=== PATIENT | male | born 1950 | race African-American/Black ===

== ENCOUNTER 2017-12-11 10:14 | Day surgery (SDC) | payer OTHER ==
[2017-12-03 16:31] VITALS: BMI 24.1
[2017-12-11] MEDS ORDERED: MIDAZOLAM HCL 2 MG/2 ML SINGLE DOSE VIAL ONE (11:47)
[2017-12-11] MEDS ORDERED: GENTAMICIN SO4 80 MG/2 ML VIAL ONE (12:08)
[2017-12-11] MEDS ORDERED: ceFAZolin SODIUM 1 GM VIAL IVPB ONE (12:10)
[2017-12-11] MEDS ORDERED: GENTAMICIN SO4 80 MG/2 ML VIAL IVPB ONE (12:25)
[2017-12-11] MEDS ORDERED: oxyCODONE HCL 5 MG TABLET PO PRN (12:54)
--- NOTE | 2017-12-11 12:56 | OP ---
Operative Note - Note: Operative Date: 12/11/17 Pre-Operative Diagnosis: bladder tumor Operation: TURBT Post-Operative Diagnosis: Same as Pre-op Surgeon: Roger Albarran Anesthesia: General Specimens Removed: bladder tumor Drains & Tubes with Location: 20 [address] Operative Report Dictated: Yes
[2017-12-11] MEDS ORDERED: ELECTROLYTE-148 SOLN 1,000 ML IV SCH (13:00)
[2017-12-11] MEDS ORDERED: ONDANSETRON 4 MG/2 ML VIAL IVPUSH PRN (13:19)
[2017-12-11] MEDS ORDERED: ACETAMINOPHEN 500 MG TABLET (FP) PO PRN (13:19)
[2017-12-11] MEDS ORDERED: LACTATED RINGERS SOLUTION 1,000 ML IV SCH (13:30)
--- NOTE | 2017-12-11 14:16 | OP ---
DATE OF OPERATION: 12/11/2017 PREOPERATIVE DIAGNOSIS: Large bladder tumor on left-sided trigone. POSTOPERATIVE DIAGNOSIS: Large bladder tumor on left-sided trigone. PROCEDURE: Transurethral resection of bladder tumor. SURGEON: Eddie Byers MD INDICATIONS: Patient is a 67-year-old male with a large bladder tumor confirmed by cystoscopy. She was taken to the OR for resection. Risks, benefits, and alternatives were discussed. DESCRIPTION OF PROCEDURE: After informed consent was obtained, patient was taken to the OR and placed supine on the operating table. After cardiac monitoring was established and general anesthesia was administered, he was prepped and draped in the dorsal lithotomy position. He was given a gram of Ancef and 80 mg of gentamicin. The resectoscope with the visual obturator was inserted into the urethra without difficulty. Anterior urethra was normal. Prostatic urethra was 3 cm and visually occlusive. The bladder was visualized. There was a large papillary appearing tumor on the left side of the bladder encompassing a good portion of the left trigone of the bladder stopping just short of the ureteral orifice and extending to the bladder neck. This was resected in its entirety, sent to Pathology for analysis, and a separate specimen was resected out of the tumor base. All bleeding sites were fulgurated, no other tumors were noted, and the ureteral orifice was seen with efflux on that side and it was also a normal right ureteral orifice. All the tumor chips were removed. Roche catheter was then placed to straight drainage. Svensen-tinged urine was then retrieved. Patient was then awoken from anesthesia and transferred to recovery room in stable condition. There were no complications. Estimated blood loss was minimal. EDDIE BYERS M.D. [id number]
[2017-12-11 15:36] VITALS: BP 146/83; PULSE 70; TEMP 97.4
--- NOTE | 2017-12-15 12:40 | PATH ---
Surgical Pathology Report Patient Name: LARRY HORVATH Med. Rec. #: [id number] /Age/Gender: 1950 (Age: 67) / M Account: [id number] Location: [facility] Taken: 12/11/2017 Received: 12/12/2017 Reported: 12/15/2017 Physicians: Roger Albarran M.D. Specimen(s) Received A: BLADDER TUMOR B: BX OF BLADDER TUMOR BASE Clinical History Bladder CA Final Diagnosis A. 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 NO MUSCULARIS PROPRIA IDENTIFIED. NO FLAT CARCINOMA IN SITU (CIS) IDENTIFIED. B. TUMOR BASE, BIOPSY LAMINA PROPRIA AND RARE MUSCULARIS MUCOSA WITH FOCAL MILD CHRONIC INFLAMMATION. NO EPITHELIUM, MUSCULARIS PROPRIA, OR CARCINOMA IDENTIFIED. Comment: Case seen interdepartmentally. Findings discussed with Dr. Smith. Electronically Signed Anika Cherry M.D. Gross Description A. Received in formalin, labeled "bladder tumor" are multiple rodriguez, necrotic, irregular portions of soft tissue measuring 3 x 3 x 1 cm. in aggregate. The specimens are submitted in 2 cassettes. B. Received in formalin, labeled "biopsy of tumor base" is a bettencourt, irregular portion of soft tissue measuring 0.4 cm. in greatest dimension. The specimens are submitted in toto in one cassette. MICA/12/12/2017 davina/12/12/2017
== END 2017-12-11 15:40 | disposition home or self-care (01) ==
LOC: JASU-SURG 10:14
PROVIDERS: ATTEND Urology
PROC: 0T5B8ZZ Destruction of Bladder, Via Natural or Artificial Opening Endoscopic (ICD-10-PCS; principal; 2017-12-11 11:30)
DX: C67.9 Malignant neoplasm of bladder, unspecified (principal)
CPT/HCPCS: 88305-TC; 94760

== ENCOUNTER → 2021-05-17 | Day surgery (SDC) | payer OTHER | END | disposition home or self-care (01) | LOC: JRADIR 09:57 | PROVIDERS: ATTEND Internal Medicine Endocrinology, Diabetes & Metabolism | PROC: 0G9K3ZX Drainage of Thyroid Gland, Percutaneous Approach, Diagnostic (ICD-10-PCS; principal; 2021-05-17) | DX: E04.1 Nontoxic single thyroid nodule (principal) | CPT/HCPCS: 10005; 76942; 88173; 88305-TC ==

== ENCOUNTER 2021-10-23 14:23 | Inpatient (IN) | payer OTHER ==
[2021-10-23 18:04] LABS: INR 1.37 (0.83-1.09); PROTHROMBIN TIME (PATIENT) 15.8 SEC (9.7-13.0)
[2021-10-23 18:07] LABS: ACTIVATED PTT 32.4 SECONDS (25.2-36.5)
[2021-10-23 18:15] LABS: CALCIUM 10.1 mg/dL (8.5-10.1)
[2021-10-23 18:16] LABS: ALBUMIN 2.8 g/dl (3.4-5.0); BLOOD UREA NITROGEN 22.3 mg/dL (7-18)
[2021-10-23 18:19] LABS: CREATININE 0.7 mg/dL (0.55-1.3); TOT PROT 7.9 g/dl (6.4-8.2)
[2021-10-23 18:21] LABS: BILIRUBIN,TOTAL 0.9 mg/dL (0.2-1)
[2021-10-23 18:57] LABS: EOS % 2.7 % (0-4.5); HEMATOCRIT 28.4 % (35.4-49); HEMOGLOBIN 9.3 GM/dL (11.7-16.9); LYMPH % 15.3 % (8-40); MCH 30.6 pg (25.7-33.7); MCHC 32.6 g/dl (32.0-35.9); MEAN CELL VOLUME 93.7 fl (80-96); MEAN PLT VOLUME 8.5 fl (7.5-11.1); MONO % 10.8 % (3.8-10.2); PLATELET COUNT 274 10^3/uL (134-434); RBC 3.03 M/mm3 (4.00-5.60); RDW 19.5 % (11.9-15.9); WHITE BLOOD COUNT 13.1 K/mm3 (4.0-10.0)
[2021-10-23] MEDS ORDERED: morphine CARPU-JECT 4 MG/1 ML DISP.SYRIN IVPUSH ONE (19:08)
[2021-10-23] MEDS ORDERED: ONDANSETRON 4 MG/2 ML VIAL IVPUSH ONE (19:08)
[2021-10-23] MEDS ORDERED: morphine SULFATE 4 MG/ML VIAL ONE (19:37)
[2021-10-23] MEDS ORDERED: ONDANSETRON 4 MG/2 ML VIAL ONE (19:37)
[2021-10-23 19:58] LABS: ANISOCYTOSIS 1+; MACROCYTOSIS 1+; PLATELET ESTIMATE NORMAL
[2021-10-23] MEDS ORDERED: DOCUSATE SODIUM 100 MG CAPSULE (FP) PO PRN (21:12)
[2021-10-23] MEDS: DEXTROSE 5%-0.45% SALINE 1,000 ML IV SCH (22:50)
[2021-10-23] MEDS: oxyCODONE HCL 5 MG TABLET PO PRN (23:58)
[2021-10-24] MEDS: oxyCODONE HCL 5 MG TABLET PO PRN ×2 (05:35→10:47)
[2021-10-24 08:03] LABS: ALBUMIN 2.7 g/dl (3.4-5.0); BLOOD UREA NITROGEN 20.4 mg/dL (7-18); CALCIUM 9.7 mg/dL (8.5-10.1)
[2021-10-24 08:06] LABS: CREATININE 0.8 mg/dL (0.55-1.3)
[2021-10-24 08:08] LABS: BILIRUBIN,TOTAL 0.8 mg/dL (0.2-1); TOT PROT 7.4 g/dl (6.4-8.2)
[2021-10-24 08:51] LABS: BASO % 0.6 % (0-2.0); EOS % 3.3 % (0-4.5); HEMATOCRIT 25.2 % (35.4-49); HEMOGLOBIN 8.3 GM/dL (11.7-16.9); MCH 30.4 pg (25.7-33.7); MEAN PLT VOLUME 8.6 fl (7.5-11.1); MONO % 11.7 % (3.8-10.2); NEUT % 70.4 % (42.8-82.8); PLATELET COUNT 301 10^3/uL (134-434); RBC 2.74 M/mm3 (4.00-5.60); RDW 19.8 % (11.9-15.9); WHITE BLOOD COUNT 11.8 K/mm3 (4.0-10.0)
[2021-10-24] MEDS: ENOXAPARIN NA (PORCINE) 40 MG/0.4 ML DISP.SYRIN SQ SCH ×2 (10:48→10:50)
[2021-10-24 14:16] LABS: URIC ACID 4.3 mg/dL (2.6-7.2)
[2021-10-24] MEDS: HYDROmorphone HCl 2 MG/ML VIAL IM PRN (16:11)
[2021-10-25] MEDS: HYDROmorphone HCl 2 MG/ML VIAL IM PRN ×4 (00:04→19:45)
[2021-10-25] MEDS: DEXTROSE 5%-0.45% SALINE 1,000 ML IV SCH ×3 (01:47→17:46)
[2021-10-25 11:03] VITALS: BMI 19.0
[2021-10-26] MEDS: oxyCODONE HCL 5 MG TABLET PO PRN ×2 (02:17→17:53)
[2021-10-26] MEDS: HYDROmorphone HCl 2 MG/ML VIAL IM PRN ×3 (03:42→21:55)
[2021-10-26] MEDS: DEXTROSE 5%-0.45% SALINE 1,000 ML IV SCH (21:15)
[2021-10-27] MEDS: DEXTROSE 5%-0.45% SALINE 1,000 ML IV SCH (00:45)
[2021-10-27] MEDS: HYDROmorphone HCl 2 MG/ML VIAL IM PRN ×4 (03:38→16:46)
[2021-10-27] MEDS: ENOXAPARIN NA (PORCINE) 40 MG/0.4 ML DISP.SYRIN SQ SCH (11:18)
[2021-10-27 13:35] LABS: ALBUMIN 2.6 g/dl (3.4-5.0); BLOOD UREA NITROGEN 11.8 mg/dL (7-18); CALCIUM 9.6 mg/dL (8.5-10.1)
[2021-10-27 13:38] LABS: CREATININE 0.7 mg/dL (0.55-1.3)
[2021-10-27 13:40] LABS: BILIRUBIN,TOTAL 0.8 mg/dL (0.2-1); TOT PROT 7.2 g/dl (6.4-8.2)
[2021-10-27 14:25] LABS: BASO % 0.5 % (0-2.0); EOS % 3.3 % (0-4.5); LYMPH % 14.5 % (8-40); MCHC 42.7 g/dl (32.0-35.9); MEAN CELL VOLUME 105.2 fl (80-96); MEAN PLT VOLUME 7.4 fl (7.5-11.1); MONO % 15.1 % (3.8-10.2); NEUT % 66.6 % (42.8-82.8); PLATELET COUNT 252 10^3/uL (134-434); RBC 1.99 M/mm3 (4.00-5.60); RDW 20.3 % (11.9-15.9); WHITE BLOOD COUNT 9.1 K/mm3 (4.0-10.0)
[2021-10-27 14:28] LABS: MCH 44.9 pg (25.7-33.7)
[2021-10-27] MEDS ORDERED: POLYETHYLENE GLYCOL (HEALTHYLAX) 3350 17 GM PACKET PO ONE (18:34)
[2021-10-27] MEDS ORDERED: oxyCODONE HCL 5 MG TABLET PO PRN (20:44)
[2021-10-27] MEDS: HYDROmorphone HCl 2 MG/ML VIAL IVPB PRN (20:48)
[2021-10-27] MEDS: DOCUSATE SODIUM 100 MG CAPSULE (FP) PO SCH (21:03)
[2021-10-28] MEDS: HYDROmorphone HCl 2 MG/ML VIAL IVPB PRN ×5 (00:48→19:06)
[2021-10-28] MEDS: DOCUSATE SODIUM 100 MG CAPSULE (FP) PO SCH ×3 (05:19→21:17)
[2021-10-28] MEDS: ENOXAPARIN NA (PORCINE) 40 MG/0.4 ML DISP.SYRIN SQ SCH (09:50)
[2021-10-28 14:52] LABS: BASO % 5.1 % (0-2.0); EOS % 3.5 % (0-4.5); HEMATOCRIT 25.6 % (35.4-49); HEMOGLOBIN 8.4 GM/dL (11.7-16.9); LYMPH % 12.2 % (8-40); MCH 27.8 pg (25.7-33.7); MCHC 32.9 g/dl (32.0-35.9); MEAN CELL VOLUME 84.6 fl (80-96); MEAN PLT VOLUME 7.5 fl (7.5-11.1); MONO % 14.6 % (3.8-10.2); NEUT % 64.6 % (42.8-82.8); PLATELET COUNT 253 10^3/uL (134-434); RBC 3.03 M/mm3 (4.00-5.60); RDW 19.6 % (11.9-15.9); WHITE BLOOD COUNT 12.1 K/mm3 (4.0-10.0)
[2021-10-28 16:05] LABS: ANISOCYTOSIS 1+; MACROCYTOSIS 0
[2021-10-29] MEDS: HYDROmorphone HCl 2 MG/ML VIAL IVPB PRN ×2 (01:49→07:10)
[2021-10-29] MEDS: DOCUSATE SODIUM 100 MG CAPSULE (FP) PO SCH ×4 (05:10→22:09)
[2021-10-29] MEDS: ENOXAPARIN NA (PORCINE) 40 MG/0.4 ML DISP.SYRIN SQ SCH (09:11)
[2021-10-29] MEDS: oxyCODONE HCL 5 MG TABLET PO PRN ×2 (15:28→21:33)
[2021-10-29] MEDS ORDERED: IRON SUCROSE INJECTION 200 MG in SODIUM CHLORIDE 90 ML IVPB ONE (16:30)
[2021-10-29] MEDS ORDERED: PRAMIPEXOLE DIHYDROCHLORIDE 0.125 MG TABLET PO SCH (20:00)
[2021-10-29] MEDS ORDERED: FENTANYL PATCH WASTE MC PRN ×2 (20:07→23:41)
[2021-10-29] MEDS: fentaNYL 25mcg/hr PATCH.TD72 TD SCH ×2 (21:24→22:09)
[2021-10-29] MEDS ORDERED: fentaNYL 25mcg/hr PATCH.TD72 TD SCH (23:45)
[2021-10-30] MEDS: oxyCODONE HCL 5 MG TABLET PO PRN (03:34)
[2021-10-30 06:09] VITALS: BP 127/72; PULSE 109; TEMP 98
[2021-10-30] MEDS: DOCUSATE SODIUM 100 MG CAPSULE (FP) PO SCH ×2 (06:10→06:12)
[2021-10-30] MEDS ORDERED: PANTOPRAZOLE 40 MG TABLET PO SCH (10:00)
[2021-10-30] MEDS ORDERED: MULTIVITAMINS (DAILY MVI) TABLET (FP) PO SCH (10:00)
== END 2021-10-30 08:00 | disposition left against medical advice (07) | DRG 166 ==
LOC: JER 14:23 → JERBED 20:39 → J7W 22:14
PROVIDERS: ADMIT Hospitalist; ATTEND Family Medicine
PROC: 0WBC3ZX Excision of Mediastinum, Percutaneous Approach, Diagnostic (ICD-10-PCS; principal; 2021-10-25)
DX: C38.3 Malignant neoplasm of mediastinum, part unspecified (principal); E43 Unspecified severe protein-calorie malnutrition; C34.90 Malignant neoplasm of unspecified part of unspecified bronchus or lung; I31.3 Pericardial effusion (noninflammatory); Z68.1 Body mass index [BMI] 19.9 or less, adult; M25.511 Pain in right shoulder; E78.5 Hyperlipidemia, unspecified; D72.829 Elevated white blood cell count, unspecified; C67.9 Malignant neoplasm of bladder, unspecified; F17.210 Nicotine dependence, cigarettes, uncomplicated
CPT/HCPCS: 32408; 36415; 70450-TC; 71045-TC-FY; 71250-TC; 71260-TC; 74177-TC; 77012-TC; 80053; 82105; 82728; 83540; 83615; 84439; 84443; 84550; 84702; 85025; 85610; 85730; 86850; 86900; 86901; 87040; 88305-TC; 88341-TC; 93005; 93010; 93306-TC; 93971; 99285-25; C9803-CS; J1756; U0003; U0005

== ENCOUNTER 2021-11-01 16:14 | Inpatient (IN) | payer OTHER ==
[2021-11-01] MEDS ORDERED: ACETAMINOPHEN INJECTION 100 ML IVPB ONE (17:53)
[2021-11-01] MEDS ORDERED: ALBUTEROL SO4 2.5/IPRATROPIUM 0.5 INH SOL 3 ML VIAL.NEB. NEB ONE ×2 (17:53→17:56)
[2021-11-01] MEDS ORDERED: ACETAMINOPHEN 1000 MG/100 ML BAG IVPB ONE (17:56)
[2021-11-01 18:22] LABS: VENOUS BASE EXCESS -1.2 mmol/L (-2-2); VENOUS O2 SATURATION 88.1 % (70-80); VENOUS PH 7.382 (7.310-7.410)
[2021-11-01] MEDS ORDERED: HYDROmorphone HCL CARPU-JECT 2 MG/1 ML DISP.SYRIN IVPB PRN (18:34)
[2021-11-01 18:40] LABS: BASO % 0.7 % (0-2.0); EOS % 1.2 % (0-4.5); HEMATOCRIT 26.2 % (35.4-49); HEMOGLOBIN 8.7 GM/dL (11.7-16.9); LYMPH % 10.1 % (8-40); MCH 28.7 pg (25.7-33.7); MCHC 33.3 g/dl (32.0-35.9); MEAN CELL VOLUME 86.2 fl (80-96); MEAN PLT VOLUME 7.5 fl (7.5-11.1); MONO % 14.3 % (3.8-10.2); NEUT % 73.7 % (42.8-82.8); PLATELET COUNT 400 10^3/uL (134-434); RBC 3.04 M/mm3 (4.00-5.60); RDW 20.5 % (11.9-15.9)
[2021-11-01 19:10] LABS: ANISOCYTOSIS 2+; MACROCYTOSIS 1+; PLATELET ESTIMATE NORMAL
[2021-11-01 19:43] LABS: ACTIVATED PTT 28.8 SECONDS (25.2-36.5); INR 1.3 (0.83-1.09)
[2021-11-01 20:39] LABS: ALBUMIN 2.6 g/dl (3.4-5.0); CALCIUM 9.9 mg/dL (8.5-10.1)
[2021-11-01 20:44] LABS: TOT PROT 7.1 g/dl (6.4-8.2)
[2021-11-01 20:47] LABS: N-TERMINAL BNP 98.2 pg/ml (5-125)
[2021-11-01] MEDS ORDERED: HYDROmorphone HCl 2 MG/ML VIAL ONE (22:06)
[2021-11-01] MEDS ORDERED: POLYETHYLENE GLYCOL (HEALTHYLAX) 3350 17 GM PACKET PO PRN (23:28)
[2021-11-02 03:38] VITALS: BMI 19.8
[2021-11-02] MEDS: HYDROmorphone HCl 2 MG/ML VIAL IVPB PRN ×2 (06:37→19:00)
[2021-11-02 07:52] LABS: BASO % 0.7 % (0-2.0); EOS % 2.5 % (0-4.5); HEMATOCRIT 23.3 % (35.4-49); HEMOGLOBIN 7.6 GM/dL (11.7-16.9); LYMPH % 11.1 % (8-40); MCH 27.6 pg (25.7-33.7); MCHC 32.6 g/dl (32.0-35.9); MEAN CELL VOLUME 84.9 fl (80-96); MEAN PLT VOLUME 7.5 fl (7.5-11.1); NEUT % 70.7 % (42.8-82.8); PLATELET COUNT 373 10^3/uL (134-434); RBC 2.75 M/mm3 (4.00-5.60); RDW 20.2 % (11.9-15.9); WHITE BLOOD COUNT 13.7 K/mm3 (4.0-10.0)
[2021-11-02 07:59] LABS: CALCIUM 9.9 mg/dL (8.5-10.1)
[2021-11-02 08:00] LABS: BLOOD UREA NITROGEN 42.7 mg/dL (7-18)
[2021-11-02 08:02] LABS: MAGNESIUM 2.9 mg/dL (1.8-2.4)
[2021-11-02] MEDS: DEXAMETHASONE SOD PHOSPHATE 4 MG/1 ML VIAL IVPB SCH ×2 (10:09→21:45)
[2021-11-02 13:58] LABS: ALBUMIN 2.4 g/dl (3.4-5.0); BLOOD UREA NITROGEN 45.8 mg/dL (7-18); CALCIUM 9.8 mg/dL (8.5-10.1)
[2021-11-02 14:01] LABS: CREATININE 1.1 mg/dL (0.55-1.3)
[2021-11-02 14:03] LABS: BILIRUBIN,TOTAL 2.1 mg/dL (0.2-1); TOT PROT 6.5 g/dl (6.4-8.2)
[2021-11-02 14:59] LABS: BASO % 0.7 % (0-2.0); EOS % 2.8 % (0-4.5); HEMATOCRIT 21.6 % (35.4-49); LYMPH % 12.8 % (8-40); MCH 28.4 pg (25.7-33.7); MCHC 32.6 g/dl (32.0-35.9); MEAN CELL VOLUME 87.3 fl (80-96); NEUT % 68.7 % (42.8-82.8); PLATELET COUNT 349 10^3/uL (134-434); RBC 2.47 M/mm3 (4.00-5.60); RDW 20.7 % (11.9-15.9); WHITE BLOOD COUNT 12.2 K/mm3 (4.0-10.0)
[2021-11-03] MEDS: HYDROmorphone HCl 2 MG/ML VIAL IVPB PRN ×3 (05:58→21:19)
[2021-11-03] MEDS: DEXAMETHASONE SOD PHOSPHATE 4 MG/1 ML VIAL IVPB SCH ×2 (09:44→21:20)
[2021-11-04] MEDS: HYDROmorphone HCl 2 MG/ML VIAL IVPB PRN ×4 (02:58→22:20)
[2021-11-04 07:19] LABS: BASO % 0.8 % (0-2.0); CALCIUM 9.4 mg/dL (8.5-10.1); EOS % 0.1 % (0-4.5); HEMATOCRIT 22.6 % (35.4-49); HEMOGLOBIN 7.6 GM/dL (11.7-16.9); LYMPH % 7.8 % (8-40); MCH 31.2 pg (25.7-33.7); MCHC 33.7 g/dl (32.0-35.9); MEAN CELL VOLUME 92.7 fl (80-96); MEAN PLT VOLUME 7.5 fl (7.5-11.1); MONO % 9.9 % (3.8-10.2); NEUT % 81.4 % (42.8-82.8); PLATELET COUNT 367 10^3/uL (134-434); RBC 2.44 M/mm3 (4.00-5.60); RDW 19.6 % (11.9-15.9); WHITE BLOOD COUNT 18.6 K/mm3 (4.0-10.0)
[2021-11-04 07:20] LABS: ALBUMIN 2.4 g/dl (3.4-5.0); BLOOD UREA NITROGEN 52.5 mg/dL (7-18)
[2021-11-04 07:23] LABS: BILIRUBIN,TOTAL 0.5 mg/dL (0.2-1); TOT PROT 6.6 g/dl (6.4-8.2)
[2021-11-04] MEDS: DEXAMETHASONE SOD PHOSPHATE 4 MG/1 ML VIAL IVPB SCH ×2 (09:59→22:21)
[2021-11-05] MEDS: HYDROmorphone HCl 2 MG/ML VIAL IVPB PRN ×3 (06:12→23:06)
[2021-11-05 07:46] LABS: CALCIUM 9.6 mg/dL (8.5-10.1)
[2021-11-05 07:47] LABS: ALBUMIN 2.6 g/dl (3.4-5.0)
[2021-11-05 07:48] LABS: CREATININE 0.9 mg/dL (0.55-1.3)
[2021-11-05 07:49] LABS: BILIRUBIN,TOTAL 0.7 mg/dL (0.2-1)
[2021-11-05 07:50] LABS: TOT PROT 7.1 g/dl (6.4-8.2)
[2021-11-05 08:04] LABS: BASO % 0.2 % (0-2.0); HEMATOCRIT 24.8 % (35.4-49); HEMOGLOBIN 8.3 GM/dL (11.7-16.9); LYMPH % 7.2 % (8-40); MCH 32.5 pg (25.7-33.7); MCHC 33.6 g/dl (32.0-35.9); MEAN CELL VOLUME 96.6 fl (80-96); MEAN PLT VOLUME 7.9 fl (7.5-11.1); MONO % 5.4 % (3.8-10.2); NEUT % 87.2 % (42.8-82.8); PLATELET COUNT 359 10^3/uL (134-434); RBC 2.57 M/mm3 (4.00-5.60); WHITE BLOOD COUNT 15.7 K/mm3 (4.0-10.0)
[2021-11-05] MEDS ORDERED: FENTANYL PATCH WASTE MC PRN (08:09)
[2021-11-05] MEDS ORDERED: fentaNYL 25mcg/hr PATCH.TD72 TD SCH (08:15)
[2021-11-05] MEDS: DEXAMETHASONE SOD PHOSPHATE 4 MG/1 ML VIAL IVPB SCH ×2 (09:22→20:21)
[2021-11-05] MEDS: TAMSULOSIN HCL 0.4 MG CAP PO SCH (09:23)
[2021-11-05 09:59] LABS: PLATELET ESTIMATE ADEQUATE
[2021-11-05] MEDS ORDERED: ENOXAPARIN NA (PORCINE) 40 MG/0.4 ML DISP.SYRIN SQ SCH (10:00)
[2021-11-05 11:36] LABS: INR 1.28 (0.83-1.09); PROTHROMBIN TIME (PATIENT) 14.8 SEC (9.7-13.0)
[2021-11-05 11:38] LABS: ACTIVATED PTT 29.5 SECONDS (25.2-36.5)
[2021-11-05] MEDS ORDERED: ENOXAPARIN NA (PORCINE) 40 MG/0.4 ML DISP.SYRIN SQ ONE ×2 (17:34→22:00)
[2021-11-05] MEDS: ASPIRIN COATED 81 MG TABLET.EC PO SCH (20:21)
[2021-11-06] MEDS: HYDROmorphone HCl 2 MG/ML VIAL IVPB PRN (03:26)
[2021-11-06] MEDS: ACETAMINOPHEN 325 MG TABLET (FP) PO PRN ×2 (09:20→16:44)
[2021-11-06] MEDS: ASPIRIN COATED 81 MG TABLET.EC PO SCH (09:21)
[2021-11-06] MEDS: POLYETHYLENE GLYCOL (HEALTHYLAX) 3350 17 GM PACKET PO SCH (09:21)
[2021-11-06] MEDS: DEXAMETHASONE SOD PHOSPHATE 4 MG/1 ML VIAL IVPB SCH ×2 (09:21→21:09)
[2021-11-06] MEDS: PANTOPRAZOLE SOD 40 MG SUSPENSION PACKET PO SCH (09:21)
[2021-11-06] MEDS: TAMSULOSIN HCL 0.4 MG CAP PO SCH (09:21)
[2021-11-06] MEDS: oxyCODONE HCL 5 MG TABLET PO PRN (14:25)
[2021-11-07] MEDS: oxyCODONE HCL 5 MG TABLET PO PRN ×3 (00:42→16:38)
[2021-11-07] MEDS: TAMSULOSIN HCL 0.4 MG CAP PO SCH (08:12)
[2021-11-07] MEDS: PANTOPRAZOLE SOD 40 MG SUSPENSION PACKET PO SCH (09:00)
[2021-11-07] MEDS: ASPIRIN COATED 81 MG TABLET.EC PO SCH (09:00)
[2021-11-07] MEDS: POLYETHYLENE GLYCOL (HEALTHYLAX) 3350 17 GM PACKET PO SCH (09:00)
[2021-11-07] MEDS ORDERED: ENOXAPARIN NA (PORCINE) 40 MG/0.4 ML DISP.SYRIN SQ SCH (10:00)
[2021-11-07] MEDS: ACETAMINOPHEN 325 MG TABLET (FP) PO PRN (11:53)
[2021-11-07] MEDS ORDERED: DEXAMETHASONE 2 MG TABLET PO SCH (14:00)
[2021-11-07 15:46] VITALS: BP 101/56; PULSE 102; TEMP 98.2
== END 2021-11-07 17:56 | disposition home or self-care (01) | DRG 981 ==
LOC: JER 16:14 → JERBED 18:36 → J4W 11-02 03:21
PROVIDERS: ADMIT Internal Medicine; ATTEND Family Medicine
PROC: 30233N1 Transfusion of Nonautologous Red Blood Cells into Peripheral Vein, Percutaneous Approach (ICD-10-PCS; 2021-11-02)
PROC: 027V3DZ Dilation of Superior Vena Cava with Intraluminal Device, Percutaneous Approach (ICD-10-PCS; principal; 2021-11-05)
DX: C34.90 Malignant neoplasm of unspecified part of unspecified bronchus or lung (principal); E43 Unspecified severe protein-calorie malnutrition; I87.1 Compression of vein; Z68.1 Body mass index [BMI] 19.9 or less, adult; D64.9 Anemia, unspecified; F17.210 Nicotine dependence, cigarettes, uncomplicated; E78.5 Hyperlipidemia, unspecified; N40.0 Benign prostatic hyperplasia without lower urinary tract symptoms; R33.9 Retention of urine, unspecified; D72.829 Elevated white blood cell count, unspecified
CPT/HCPCS: 36415; 36430; 37238; 70470-TC; 71045-TC-FY; 71275-TC; 72125-TC; 72141-TC; 72146-TC; 75827-TC-FY; 80048; 80053; 82728; 82803; 82962; 83540; 83550; 83735; 83880; 84484; 85025; 85610; 85730; 86850; 86900; 86901; 86922; 93005; 93010; 99285-25; C9803-CS; P9058; Q9967; U0003; U0005

== ENCOUNTER 2021-11-13 22:32 | Inpatient (IN) | payer OTHER ==
[2021-11-13] MEDS ORDERED: ACETAMINOPHEN 1000 MG/100 ML BAG IVPB ONE (23:03)
[2021-11-13] MEDS ORDERED: ACETAMINOPHEN INJECTION 100 ML IVPB ONE ×2 (23:05→23:16)
[2021-11-14 00:15] LABS: CALCIUM 9.9 mg/dL (8.5-10.1)
[2021-11-14 00:16] LABS: ALBUMIN 2.6 g/dl (3.4-5.0); BLOOD UREA NITROGEN 28.8 mg/dL (7-18)
[2021-11-14 00:18] LABS: CREATININE 0.7 mg/dL (0.55-1.3)
[2021-11-14 00:20] LABS: BILIRUBIN,TOTAL 1.2 mg/dL (0.2-1); TOT PROT 7.2 g/dl (6.4-8.2)
[2021-11-14 00:39] LABS: HEMATOCRIT 27.4 % (35.4-49); HEMOGLOBIN 9.4 GM/dL (11.7-16.9); MCH 35.6 pg (25.7-33.7); MCHC 34.4 g/dl (32.0-35.9); MEAN CELL VOLUME 103.6 fl (80-96); MEAN PLT VOLUME 8.6 fl (7.5-11.1); PLATELET COUNT 322 10^3/uL (134-434); RBC 2.65 M/mm3 (4.00-5.60); RDW 21.6 % (11.9-15.9); WHITE BLOOD COUNT 20.8 K/mm3 (4.0-10.0)
[2021-11-14] MEDS ORDERED: HYDROmorphone HCL CARPU-JECT 2 MG/1 ML DISP.SYRIN IVPUSH ONE (01:15)
[2021-11-14] MEDS ORDERED: HYDROmorphone HCl 2 MG/ML VIAL ONE (01:16)
[2021-11-14 01:48] LABS: ANISOCYTOSIS 2+; MACROCYTOSIS 0
[2021-11-14] MEDS ORDERED: MINERAL OIL ENEMA 133 ML ENEMA PR ONE (03:46)
[2021-11-14] MEDS ORDERED: ACETAMINOPHEN 325 MG TABLET (FP) PO PRN (05:02)
[2021-11-14] MEDS ORDERED: SENNOSIDES 8.6MG TABLET (FP) PO ONE ×2 (05:14→06:31)
[2021-11-14] MEDS ORDERED: FENTANYL PATCH WASTE TD PRN (05:57)
[2021-11-14] MEDS ORDERED: DEXAMETHASONE 0.5 MG TABLET PO SCH (06:00)
[2021-11-14] MEDS ORDERED: fentaNYL 25mcg/hr PATCH.TD72 TD SCH (06:00)
[2021-11-14] MEDS ORDERED: DEXAMETHASONE 4 MG TABLET (FP) ONE ×2 (06:31→14:18)
[2021-11-14] MEDS: DEXTROSE 5%-NORMAL SALINE 1,000 ML IV SCH ×2 (06:37→22:26)
[2021-11-14] MEDS ORDERED: TAMSULOSIN HCL 0.4 MG CAP ONE (09:01)
[2021-11-14] MEDS ORDERED: POLYETHYLENE GLYCOL (HEALTHYLAX) 3350 17 GM PACKET ONE (09:01)
[2021-11-14] MEDS ORDERED: oxyCODONE HCL 5 MG TABLET ONE (09:04)
[2021-11-14] MEDS: TAMSULOSIN HCL 0.4 MG CAP PO SCH (09:09)
[2021-11-14] MEDS: oxyCODONE HCL 5 MG TABLET PO PRN (09:09)
[2021-11-14] MEDS: POLYETHYLENE GLYCOL (HEALTHYLAX) 3350 17 GM PACKET PO PRN (09:09)
[2021-11-14 10:12] LABS: EPI CELLS 9 /uL (0-25.1); HYALINE CASTS 3 /uL (0-3.1); PH,URINE 5.5 (5.0-8.0); URINE APPEARANCE CLOUDY; URINE BACTERIA 1807 /uL (0-1359); URINE BILIRUBIN 1+ (NEGATIVE); URINE COLOR ORANGE; URINE GLUCOSE (UA) NEGATIVE (NEGATIVE); URINE KETONE NEGATIVE (NEGATIVE); URINE LEUK ESTERASE NEGATIVE (NEGATIVE); URINE NITRITE NEGATIVE (NEGATIVE); URINE PROTEIN TRACE (NEGATIVE); URINE WBC 23 /uL (0-25.8)
[2021-11-14 10:42] LABS: URINE CRYSTALS NEGATIVE /hpf; URINE RBC 31.7 /uL (0-23.9)
[2021-11-14] MEDS: ASPIRIN COATED 81 MG TABLET.EC PO SCH (11:00)
[2021-11-14] MEDS ORDERED: ATORVASTATIN CA 40 MG TABLET (FP) ONE (14:18)
[2021-11-14] MEDS ORDERED: PANTOPRAZOLE 40 MG TABLET PO ONE (14:18)
[2021-11-14] MEDS: ATORVASTATIN CA 40 MG TABLET (FP) PO SCH (14:25)
[2021-11-14] MEDS: DEXAMETHASONE 2 MG TABLET PO SCH ×2 (14:26→22:21)
[2021-11-14] MEDS: PANTOPRAZOLE 40 MG TABLET PO SCH (14:26)
[2021-11-14] MEDS ORDERED: Methylnaltrexone Bromide 12 MG/0.6 ML KIT SQ SCH (18:15)
[2021-11-14 18:41] VITALS: BMI 20.5
[2021-11-14] MEDS ORDERED: Methylnaltrexone Bromide 12 MG/0.6 ML KIT SQ ONE (21:30)
[2021-11-15] MEDS: DEXTROSE 5%-NORMAL SALINE 1,000 ML IV SCH (05:41)
[2021-11-15] MEDS: DEXAMETHASONE 2 MG TABLET PO SCH ×3 (05:41→22:14)
[2021-11-15 07:53] LABS: INR 1.42 (0.83-1.09); PROTHROMBIN TIME (PATIENT) 16.4 SEC (9.7-13.0)
[2021-11-15 07:54] LABS: HEMOGLOBIN 7.6 GM/dL (11.7-16.9)
[2021-11-15 07:56] LABS: ACTIVATED PTT 26.4 SECONDS (25.2-36.5)
[2021-11-15 08:14] LABS: CREATININE 0.7 mg/dL (0.55-1.3)
[2021-11-15 08:15] LABS: ALBUMIN 2.3 g/dl (3.4-5.0); TOT PROT 6.2 g/dl (6.4-8.2)
[2021-11-15 08:18] LABS: CALCIUM 9.3 mg/dL (8.5-10.1)
[2021-11-15] MEDS: TAMSULOSIN HCL 0.4 MG CAP PO SCH (10:23)
[2021-11-15] MEDS: ATORVASTATIN CA 40 MG TABLET (FP) PO SCH (10:23)
[2021-11-15] MEDS: PANTOPRAZOLE 40 MG TABLET PO SCH (10:23)
[2021-11-15] MEDS: ASPIRIN COATED 81 MG TABLET.EC PO SCH (10:23)
[2021-11-15 11:27] LABS: MEAN PLT VOLUME 7.5 fl (7.5-11.1); PLATELET COUNT 347 10^3/uL (134-434)
[2021-11-15 12:13] LABS: ANISOCYTOSIS 2+; MACROCYTOSIS 0; OVALOCYTE 2+
[2021-11-15 12:36] LABS: HEMATOCRIT 22.6 % (35.4-49); HEMOGLOBIN 7.4 GM/dL (11.7-16.9); MCHC 32.7 g/dl (32.0-35.9); MEAN CELL VOLUME 88.6 fl (80-96); MEAN PLT VOLUME 7.7 fl (7.5-11.1); PLATELET COUNT 289 10^3/uL (134-434); RBC 2.55 M/mm3 (4.00-5.60); RDW 21.3 % (11.9-15.9); WHITE BLOOD COUNT 29.8 K/mm3 (4.0-10.0)
[2021-11-15 13:01] LABS: ANISOCYTOSIS 1+; MACROCYTOSIS 1+
[2021-11-15 13:11] LABS: BASO % 0.2 % (0-2.0); LYMPH % 3.4 % (8-40); MONO % 5.7 % (3.8-10.2); NEUT % 90.7 % (42.8-82.8)
[2021-11-15 13:14] LABS: HEMATOCRIT 23.4 % (35.4-49); RBC 2.63 M/mm3 (4.00-5.60); WHITE BLOOD COUNT 28.8 K/mm3 (4.0-10.0)
[2021-11-15 13:15] LABS: MCH 28.8 pg (25.7-33.7); MCHC 32.3 g/dl (32.0-35.9); MEAN CELL VOLUME 89.1 fl (80-96); RDW 21.5 % (11.9-15.9)
[2021-11-15] MEDS: oxyCODONE HCL 5 MG TABLET PO PRN (22:14)
[2021-11-15] MEDS ORDERED: Methylnaltrexone Bromide 12 MG/0.6 ML KIT SQ ONE (22:30)
[2021-11-16] MEDS: DEXTROSE 5%-NORMAL SALINE 1,000 ML IV SCH (04:05)
[2021-11-16] MEDS: DEXAMETHASONE 2 MG TABLET PO SCH ×2 (06:22→15:13)
[2021-11-16] MEDS: ATORVASTATIN CA 40 MG TABLET (FP) PO SCH (09:07)
[2021-11-16] MEDS: TAMSULOSIN HCL 0.4 MG CAP PO SCH (09:07)
[2021-11-16] MEDS: ASPIRIN COATED 81 MG TABLET.EC PO SCH (09:07)
[2021-11-16] MEDS: POLYETHYLENE GLYCOL (HEALTHYLAX) 3350 17 GM PACKET PO PRN (09:07)
[2021-11-16] MEDS: PANTOPRAZOLE 40 MG TABLET PO SCH (09:07)
[2021-11-16 09:40] LABS: BASO % 0.3 % (0-2.0); HEMOGLOBIN 7.8 GM/dL (11.7-16.9); MCH 28.7 pg (25.7-33.7); MCHC 32.4 g/dl (32.0-35.9); MEAN CELL VOLUME 88.5 fl (80-96); MEAN PLT VOLUME 8.1 fl (7.5-11.1); MONO % 6.4 % (3.8-10.2); NEUT % 89.3 % (42.8-82.8); PLATELET COUNT 261 10^3/uL (134-434); RBC 2.71 M/mm3 (4.00-5.60); RDW 20.4 % (11.9-15.9)
[2021-11-16 13:35] LABS: ANISOCYTOSIS 1+; MACROCYTOSIS 0; ROULEAU 1+
[2021-11-16 14:48] VITALS: BP 120/70; PULSE 106; TEMP 98.2
[2021-11-16] MEDS: oxyCODONE HCL 5 MG TABLET PO PRN (16:50)
== END 2021-11-16 18:00 | disposition home health service (06) | DRG 542 ==
LOC: JER 22:32 → JERBED 11-14 04:52 → J4S 11-14 20:21
PROVIDERS: ADMIT Hospitalist; ATTEND Family Medicine
DX: C79.51 Secondary malignant neoplasm of bone (principal); E43 Unspecified severe protein-calorie malnutrition; J98.59 Other diseases of mediastinum, not elsewhere classified; C78.1 Secondary malignant neoplasm of mediastinum; C67.9 Malignant neoplasm of bladder, unspecified; K59.03 Drug induced constipation; T40.2X5A Adverse effect of other opioids, initial encounter; E78.5 Hyperlipidemia, unspecified; K57.90 Diverticulosis of intestine, part unspecified, without perforation or abscess without bleeding; F17.210 Nicotine dependence, cigarettes, uncomplicated; M54.10 Radiculopathy, site unspecified; D72.829 Elevated white blood cell count, unspecified; D64.9 Anemia, unspecified; R00.0 Tachycardia, unspecified; R07.89 Other chest pain; Z96.641 Presence of right artificial hip joint; Z68.20 Body mass index [BMI] 20.0-20.9, adult
CPT/HCPCS: 0241U-QW; 36415; 36430; 73552-TC-LT-FY; 74019-TC-FY; 74177-TC; 80053; 81003; 83605; 83690; 83735; 84484; 85025; 85610; 85730; 86850; 86900; 86901; 86922; 87086; 87186; 93005; 93010; 97116-GP; 97161-GP; 99285-25; J8540; P9058

== ENCOUNTER 2021-11-28 13:00 | Inpatient (IN) | payer OTHER ==
[2021-11-28 14:49] LABS: EPI CELLS 0 /uL (0-25.1); HYALINE CASTS 0 /uL (0-3.1); URINE APPEARANCE CLEAR; URINE BILIRUBIN NEGATIVE (NEGATIVE); URINE COLOR YELLOW; URINE GLUCOSE (UA) NEGATIVE (NEGATIVE); URINE KETONE NEGATIVE (NEGATIVE); URINE LEUK ESTERASE 1+ (NEGATIVE); URINE NITRITE POSITIVE (NEGATIVE); URINE PROTEIN TRACE (NEGATIVE); URINE RBC 17 /uL (0-23.9); URINE WBC 103 /uL (0-25.8)
[2021-11-28 15:14] LABS: CALCIUM 9.4 mg/dL (8.5-10.1)
[2021-11-28 15:15] LABS: BLOOD UREA NITROGEN 34.8 mg/dL (7-18)
[2021-11-28 15:18] LABS: BASO % 0.9 % (0-2.0); CREATININE 0.7 mg/dL (0.55-1.3); EOS % 1.5 % (0-4.5); HEMATOCRIT 21.3 % (35.4-49); HEMOGLOBIN 7.4 GM/dL (11.7-16.9); LYMPH % 7.4 % (8-40); MCH 35.6 pg (25.7-33.7); MCHC 34.9 g/dl (32.0-35.9); MEAN PLT VOLUME 7.6 fl (7.5-11.1); MONO % 9.3 % (3.8-10.2); NEUT % 80.9 % (42.8-82.8); PLATELET COUNT 284 10^3/uL (134-434); RBC 2.09 M/mm3 (4.00-5.60); RDW 22.2 % (11.9-15.9)
[2021-11-28] MEDS ORDERED: SODIUM CHLORIDE 0.9% 1000 ML INFUS.BAG IV ONE (15:20)
[2021-11-28] MEDS ORDERED: ACETAMINOPHEN 1000 MG/100 ML BAG IVPB ONE (15:20)
[2021-11-28] MEDS ORDERED: PIPERACILLIN/TAZOB 4.5 GM 4.5 GM in DEXTROSE 5%-WATER 100 ML IVPB ONE (15:21)
[2021-11-28] MEDS ORDERED: oxyCODONE HCL 5 MG TABLET PO ONE (16:09)
[2021-11-28] MEDS ORDERED: PIPERACILLIN/TAZOB 4.5 GM 4.5 GM/100 ML BAG IVPB ONE (16:35)
[2021-11-28] MEDS ORDERED: oxyCODONE HCL 10 MG SUSTAINED ACTING TABLET ONE (16:35)
[2021-11-28] MEDS ORDERED: ACETAMINOPHEN INJECTION 100 ML IVPB ONE (16:35)
[2021-11-28] MEDS ORDERED: POLYETHYLENE GLYCOL (HEALTHYLAX) 3350 17 GM PACKET PO PRN (18:21)
[2021-11-28] MEDS ORDERED: fentaNYL 25mcg/hr PATCH.TD72 ONE (18:33)
[2021-11-28] MEDS: fentaNYL 25mcg/hr PATCH.TD72 TD SCH (18:35)
[2021-11-28 23:45] VITALS: BMI 18.3
[2021-11-29] MEDS ORDERED: PIPERACILLIN/TAZOBACTAM 3.375 GM VIAL IVPB ONE ×3 (00:44→17:28)
[2021-11-29] MEDS ORDERED: DEXTROSE 5%-WATER - 50 ML IVPB ONE ×3 (00:44→17:28)
[2021-11-29] MEDS: oxyCODONE HCL 5 MG TABLET PO PRN (00:56)
[2021-11-29] MEDS ORDERED: PIPERACILLIN/TAZOB 3.375 GM 3.375 GM in DEXTROSE 5%-WATER - 50 ML IVPB ONE (01:00)
[2021-11-29] MEDS: HEPARIN NA (PORCINE) 5,000 UNITS/ML 1ML VIAL SQ SCH ×2 (05:38→14:02)
[2021-11-29] MEDS: TAMSULOSIN HCL 0.4 MG CAP PO SCH (08:16)
[2021-11-29] MEDS: ASPIRIN COATED 81 MG TABLET.EC PO SCH (09:23)
[2021-11-29] MEDS: ACETAMINOPHEN 325 MG TABLET (FP) PO PRN ×2 (09:23→22:41)
[2021-11-29] MEDS: ATORVASTATIN CA 40 MG TABLET (FP) PO SCH (09:23)
[2021-11-29 12:20] LABS: BLOOD UREA NITROGEN 20.6 mg/dL (7-18); CALCIUM 8.9 mg/dL (8.5-10.1)
[2021-11-29 12:23] LABS: CREATININE 0.6 mg/dL (0.55-1.3)
[2021-11-29 12:25] LABS: TOT PROT 5.6 g/dl (6.4-8.2)
[2021-11-29 12:48] LABS: ALBUMIN 1.8 g/dl (3.4-5.0)
[2021-11-29 13:08] LABS: BASO % 0.2 % (0-2.0); EOS % 0.9 % (0-4.5); LYMPH % 11.2 % (8-40); MCH 30.2 pg (25.7-33.7); MCHC 32.9 g/dl (32.0-35.9); MEAN CELL VOLUME 91.8 fl (80-96); MEAN PLT VOLUME 7.4 fl (7.5-11.1); MONO % 12.5 % (3.8-10.2); NEUT % 75.2 % (42.8-82.8); PLATELET COUNT 240 10^3/uL (134-434); RBC 2.07 M/mm3 (4.00-5.60); RDW 21.1 % (11.9-15.9); WHITE BLOOD COUNT 9.9 K/mm3 (4.0-10.0)
[2021-11-29 13:16] LABS: HEMOGLOBIN 6.2 GM/dL (11.7-16.9)
[2021-11-29] MEDS ORDERED: FUROSEMIDE 40 MG/4 ML INJECTABLE VIAL IVPUSH ONE (13:30)
[2021-11-29] MEDS: PIPERACILLIN/TAZOB 3.375 GM 3.375 GM in DEXTROSE 5%-WATER - 50 ML IVPB SCH ×2 (14:02→17:36)
[2021-11-29] MEDS ORDERED: PIPERACILLIN/TAZOB 3.375 GM 3.375 GM in DEXTROSE 5%-WATER - 50 ML IVPB SCH (18:00)
[2021-11-29] MEDS: POLYETHYLENE GLYCOL (HEALTHYLAX) 3350 17 GM PACKET PO SCH (21:40)
[2021-11-29] MEDS ORDERED: PANTOPRAZOLE SODIUM 40 MG VIAL IVPUSH SCH (22:00)
[2021-11-30] MEDS ORDERED: PIPERACILLIN/TAZOBACTAM 3.375 GM VIAL IVPB ONE ×3 (00:17→17:32)
[2021-11-30] MEDS ORDERED: DEXTROSE 5%-WATER - 50 ML IVPB ONE ×3 (00:17→17:32)
[2021-11-30] MEDS: PIPERACILLIN/TAZOB 3.375 GM 3.375 GM in DEXTROSE 5%-WATER - 50 ML IVPB SCH ×3 (00:45→17:35)
[2021-11-30] MEDS ORDERED: FUROSEMIDE 40 MG/4 ML INJECTABLE VIAL IVPUSH ONE (05:30)
[2021-11-30] MEDS: POLYETHYLENE GLYCOL (HEALTHYLAX) 3350 17 GM PACKET PO SCH ×2 (09:33→23:09)
[2021-11-30] MEDS: TAMSULOSIN HCL 0.4 MG CAP PO SCH (09:33)
[2021-11-30] MEDS: PANTOPRAZOLE 20 MG TABLET PO SCH (09:33)
[2021-11-30] MEDS: ATORVASTATIN CA 40 MG TABLET (FP) PO SCH (09:33)
[2021-11-30] MEDS ORDERED: BUPIVACAINE HCL/PF 0.5% (5MG/ML) 10 ML VIAL ONE (10:05)
[2021-11-30] MEDS ORDERED: BACITRACIN 15 GM TUBE TOPICAL OINTMENT ONE (10:06)
[2021-11-30 11:08] LABS: ALBUMIN 2.1 g/dl (3.4-5.0); BLOOD UREA NITROGEN 18.6 mg/dL (7-18); CALCIUM 9.5 mg/dL (8.5-10.1)
[2021-11-30 11:11] LABS: CREATININE 0.6 mg/dL (0.55-1.3)
[2021-11-30 11:14] LABS: BILIRUBIN,TOTAL 2.3 mg/dL (0.2-1); TOT PROT 6.2 g/dl (6.4-8.2)
[2021-11-30 11:29] LABS: BASO % 0.2 % (0-2.0); EOS % 1.1 % (0-4.5); HEMATOCRIT 27.1 % (35.4-49); HEMOGLOBIN 9.3 GM/dL (11.7-16.9); MCH 31.3 pg (25.7-33.7); MCHC 34.5 g/dl (32.0-35.9); MEAN CELL VOLUME 90.7 fl (80-96); MEAN PLT VOLUME 7.4 fl (7.5-11.1); MONO % 10.8 % (3.8-10.2); NEUT % 79.9 % (42.8-82.8); PLATELET COUNT 233 10^3/uL (134-434); RBC 2.99 M/mm3 (4.00-5.60); RDW 19.7 % (11.9-15.9); WHITE BLOOD COUNT 11.7 K/mm3 (4.0-10.0)
[2021-11-30] MEDS ORDERED: PROMETHAZINE HCL 25 MG/1 ML VIAL IVPUSH PRN (11:42)
[2021-11-30] MEDS ORDERED: oxyCODONE HCL 5 MG TABLET PO PRN (11:42)
[2021-11-30] MEDS ORDERED: ONDANSETRON 4 MG/2 ML VIAL IVPUSH PRN (11:42)
[2021-11-30] MEDS: oxyCODONE HCL 5 MG TABLET PO PRN (17:35)
[2021-11-30] MEDS ORDERED: ceFAZolin SODIUM 1 GM VIAL ONE (18:50)
[2021-11-30] MEDS ORDERED: DEXTROSE 5%-WATER 100 ML IVPB ONE (18:50)
[2021-11-30] MEDS: CEFAZOLIN 2 GM in DEXTROSE 5%-WATER 100 ML IVPB SCH (18:55)
[2021-12-01] MEDS ORDERED: DEXTROSE 5%-WATER - 50 ML IVPB ONE ×3 (01:56→19:12)
[2021-12-01] MEDS ORDERED: PIPERACILLIN/TAZOBACTAM 3.375 GM VIAL IVPB ONE ×3 (01:56→19:12)
[2021-12-01] MEDS: PIPERACILLIN/TAZOB 3.375 GM 3.375 GM in DEXTROSE 5%-WATER - 50 ML IVPB SCH ×3 (01:58→19:15)
[2021-12-01] MEDS ORDERED: ceFAZolin SODIUM 1 GM VIAL ONE (02:44)
[2021-12-01] MEDS ORDERED: DEXTROSE 5%-WATER 100 ML IVPB ONE (02:44)
[2021-12-01] MEDS: ACETAMINOPHEN 325 MG TABLET (FP) PO PRN ×2 (03:02→20:37)
[2021-12-01] MEDS ORDERED: CEFAZOLIN 2 GM in DEXTROSE 5%-WATER - 100 ML IVPB SCH (04:30)
[2021-12-01] MEDS: CEFAZOLIN 2 GM in DEXTROSE 5%-WATER 100 ML IVPB SCH (04:42)
[2021-12-01] MEDS: PANTOPRAZOLE 20 MG TABLET PO SCH (09:36)
[2021-12-01] MEDS: TAMSULOSIN HCL 0.4 MG CAP PO SCH (09:36)
[2021-12-01] MEDS: POLYETHYLENE GLYCOL (HEALTHYLAX) 3350 17 GM PACKET PO SCH ×2 (09:37→22:20)
[2021-12-01] MEDS: METHIMAZOLE 10 MG TABLET PO SCH (09:37)
[2021-12-01] MEDS: ATORVASTATIN CA 40 MG TABLET (FP) PO SCH (09:38)
[2021-12-01] MEDS: ENOXAPARIN NA (PORCINE) 40 MG/0.4 ML DISP.SYRIN SQ SCH (09:38)
[2021-12-01] MEDS: METOPROLOL TARTRATE 25 MG TABLET (FP) PO SCH (09:38)
[2021-12-01 09:56] LABS: BLOOD UREA NITROGEN 16.8 mg/dL (7-18)
[2021-12-01 09:58] LABS: CALCIUM 8.9 mg/dL (8.5-10.1)
[2021-12-01 10:00] LABS: CREATININE 0.7 mg/dL (0.55-1.3)
[2021-12-01 10:09] LABS: HEMATOCRIT 25.7 % (35.4-49); HEMOGLOBIN 8.9 GM/dL (11.7-16.9); MCH 31.3 pg (25.7-33.7); MCHC 34.5 g/dl (32.0-35.9); MEAN CELL VOLUME 90.6 fl (80-96); MEAN PLT VOLUME 7.3 fl (7.5-11.1); PLATELET COUNT 207 10^3/uL (134-434); RBC 2.83 M/mm3 (4.00-5.60); RDW 19.4 % (11.9-15.9); WHITE BLOOD COUNT 9.2 K/mm3 (4.0-10.0)
[2021-12-01] MEDS: ASPIRIN COATED 81 MG TABLET.EC PO SCH (10:15)
[2021-12-01] MEDS: fentaNYL 25mcg/hr PATCH.TD72 TD SCH (19:14)
[2021-12-02] MEDS ORDERED: DEXTROSE 5%-WATER - 50 ML IVPB ONE ×3 (01:39→17:13)
[2021-12-02] MEDS ORDERED: PIPERACILLIN/TAZOBACTAM 3.375 GM VIAL IVPB ONE ×3 (01:39→17:13)
[2021-12-02] MEDS: PIPERACILLIN/TAZOB 3.375 GM 3.375 GM in DEXTROSE 5%-WATER - 50 ML IVPB SCH ×3 (01:42→17:17)
[2021-12-02] MEDS: TAMSULOSIN HCL 0.4 MG CAP PO SCH (09:09)
[2021-12-02] MEDS: METOPROLOL TARTRATE 25 MG TABLET (FP) PO SCH (09:45)
[2021-12-02] MEDS: ATORVASTATIN CA 40 MG TABLET (FP) PO SCH (09:46)
[2021-12-02] MEDS: PANTOPRAZOLE 20 MG TABLET PO SCH (09:46)
[2021-12-02] MEDS: ZINC SULFATE 220 MG CAPSULE (FP) PO SCH (09:46)
[2021-12-02] MEDS: ASPIRIN COATED 81 MG TABLET.EC PO SCH (09:46)
[2021-12-02] MEDS: MULTIVITAMINS (DAILY MVI) TABLET (FP) PO SCH (09:46)
[2021-12-02] MEDS: POLYETHYLENE GLYCOL (HEALTHYLAX) 3350 17 GM PACKET PO SCH ×2 (09:46→21:05)
[2021-12-02] MEDS: ENOXAPARIN NA (PORCINE) 40 MG/0.4 ML DISP.SYRIN SQ SCH (09:47)
[2021-12-02] MEDS: METHIMAZOLE 10 MG TABLET PO SCH (09:47)
[2021-12-02] MEDS: ASCORBIC ACID 250 MG TABLET (FP) PO SCH (09:47)
[2021-12-02 10:10] LABS: ALBUMIN 1.7 g/dl (3.4-5.0); BLOOD UREA NITROGEN 15.5 mg/dL (7-18)
[2021-12-02 10:13] LABS: CREATININE 0.6 mg/dL (0.55-1.3)
[2021-12-02 10:16] LABS: BILIRUBIN,TOTAL 1.5 mg/dL (0.2-1); TOT PROT 5.6 g/dl (6.4-8.2)
[2021-12-02 10:20] LABS: BASO % 0.6 % (0-2.0); EOS % 1.4 % (0-4.5); HEMATOCRIT 22.7 % (35.4-49); LYMPH % 8.2 % (8-40); MCH 34.3 pg (25.7-33.7); MCHC 35.3 g/dl (32.0-35.9); MEAN CELL VOLUME 97.3 fl (80-96); MEAN PLT VOLUME 7.5 fl (7.5-11.1); MONO % 9.7 % (3.8-10.2); NEUT % 80.1 % (42.8-82.8); PLATELET COUNT 193 10^3/uL (134-434); RBC 2.34 M/mm3 (4.00-5.60); RDW 18.4 % (11.9-15.9); WHITE BLOOD COUNT 8.4 K/mm3 (4.0-10.0)
[2021-12-03] MEDS ORDERED: PIPERACILLIN/TAZOBACTAM 3.375 GM VIAL IVPB ONE ×3 (01:15→17:20)
[2021-12-03] MEDS ORDERED: DEXTROSE 5%-WATER - 50 ML IVPB ONE ×3 (01:16→17:20)
[2021-12-03] MEDS: PIPERACILLIN/TAZOB 3.375 GM 3.375 GM in DEXTROSE 5%-WATER - 50 ML IVPB SCH ×3 (01:23→17:30)
[2021-12-03] MEDS: ACETAMINOPHEN 325 MG TABLET (FP) PO PRN ×2 (01:38→21:29)
[2021-12-03] MEDS: POLYETHYLENE GLYCOL (HEALTHYLAX) 3350 17 GM PACKET PO SCH ×2 (09:26→21:28)
[2021-12-03] MEDS: ENOXAPARIN NA (PORCINE) 40 MG/0.4 ML DISP.SYRIN SQ SCH (09:28)
[2021-12-03] MEDS: ATORVASTATIN CA 40 MG TABLET (FP) PO SCH (09:29)
[2021-12-03] MEDS: METOPROLOL TARTRATE 25 MG TABLET (FP) PO SCH (09:29)
[2021-12-03] MEDS: PANTOPRAZOLE 20 MG TABLET PO SCH (09:29)
[2021-12-03] MEDS: ZINC SULFATE 220 MG CAPSULE (FP) PO SCH (09:29)
[2021-12-03] MEDS: MULTIVITAMINS (DAILY MVI) TABLET (FP) PO SCH (09:29)
[2021-12-03] MEDS: TAMSULOSIN HCL 0.4 MG CAP PO SCH (09:29)
[2021-12-03] MEDS: ASPIRIN COATED 81 MG TABLET.EC PO SCH (09:29)
[2021-12-03] MEDS: ASCORBIC ACID 250 MG TABLET (FP) PO SCH (09:42)
[2021-12-03] MEDS: METHIMAZOLE 10 MG TABLET PO SCH (09:42)
[2021-12-03 11:40] LABS: CALCIUM 9.6 mg/dL (8.5-10.1)
[2021-12-03 11:42] LABS: ALBUMIN 1.6 g/dl (3.4-5.0); BLOOD UREA NITROGEN 17.1 mg/dL (7-18); CREATININE 0.7 mg/dL (0.55-1.3)
[2021-12-03 11:46] LABS: BILIRUBIN,TOTAL 1.9 mg/dL (0.2-1); TOT PROT 5.7 g/dl (6.4-8.2)
[2021-12-03 12:01] LABS: BASO % 0.2 % (0-2.0); EOS % 1.3 % (0-4.5); HEMATOCRIT 23.1 % (35.4-49); HEMOGLOBIN 8.1 GM/dL (11.7-16.9); LYMPH % 8.2 % (8-40); MCHC 35.1 g/dl (32.0-35.9); MEAN CELL VOLUME 96.7 fl (80-96); MEAN PLT VOLUME 7.9 fl (7.5-11.1); MONO % 9.3 % (3.8-10.2); PLATELET COUNT 211 10^3/uL (134-434); RBC 2.39 M/mm3 (4.00-5.60); RDW 18.6 % (11.9-15.9); WHITE BLOOD COUNT 8.6 K/mm3 (4.0-10.0)
[2021-12-04] MEDS ORDERED: DEXTROSE 5%-WATER - 50 ML IVPB ONE ×3 (00:57→17:42)
[2021-12-04] MEDS ORDERED: PIPERACILLIN/TAZOBACTAM 3.375 GM VIAL IVPB ONE ×3 (00:57→17:41)
[2021-12-04] MEDS: PIPERACILLIN/TAZOB 3.375 GM 3.375 GM in DEXTROSE 5%-WATER - 50 ML IVPB SCH ×3 (01:07→17:55)
[2021-12-04] MEDS: ACETAMINOPHEN 325 MG TABLET (FP) PO PRN ×2 (05:28→21:31)
[2021-12-04] MEDS: ENOXAPARIN NA (PORCINE) 40 MG/0.4 ML DISP.SYRIN SQ SCH (09:03)
[2021-12-04] MEDS: METOPROLOL TARTRATE 25 MG TABLET (FP) PO SCH (09:04)
[2021-12-04] MEDS: ASPIRIN COATED 81 MG TABLET.EC PO SCH (09:04)
[2021-12-04] MEDS: ATORVASTATIN CA 40 MG TABLET (FP) PO SCH (09:04)
[2021-12-04] MEDS: TAMSULOSIN HCL 0.4 MG CAP PO SCH (09:04)
[2021-12-04] MEDS: ZINC SULFATE 220 MG CAPSULE (FP) PO SCH (09:04)
[2021-12-04] MEDS: PANTOPRAZOLE 20 MG TABLET PO SCH (09:04)
[2021-12-04] MEDS: MULTIVITAMINS (DAILY MVI) TABLET (FP) PO SCH (09:04)
[2021-12-04] MEDS: POLYETHYLENE GLYCOL (HEALTHYLAX) 3350 17 GM PACKET PO SCH ×2 (09:04→21:29)
[2021-12-04] MEDS: METHIMAZOLE 10 MG TABLET PO SCH (09:05)
[2021-12-04] MEDS: ASCORBIC ACID 250 MG TABLET (FP) PO SCH (09:05)
[2021-12-04 11:10] LABS: ALBUMIN 1.7 g/dl (3.4-5.0); BLOOD UREA NITROGEN 20.5 mg/dL (7-18); CALCIUM 10.1 mg/dL (8.5-10.1)
[2021-12-04 11:11] LABS: CREATININE 0.7 mg/dL (0.55-1.3)
[2021-12-04 11:12] LABS: BILIRUBIN,TOTAL 2.5 mg/dL (0.2-1)
[2021-12-04 11:14] LABS: TOT PROT 5.9 g/dl (6.4-8.2)
[2021-12-04 11:42] LABS: HEMATOCRIT 24.3 % (35.4-49); HEMOGLOBIN 8.3 GM/dL (11.7-16.9); MCH 33.8 pg (25.7-33.7); MCHC 34.3 g/dl (32.0-35.9); MEAN CELL VOLUME 98.6 fl (80-96); MEAN PLT VOLUME 8.2 fl (7.5-11.1); PLATELET COUNT 186 10^3/uL (134-434); RBC 2.46 M/mm3 (4.00-5.60); RDW 18.6 % (11.9-15.9); WHITE BLOOD COUNT 9.7 K/mm3 (4.0-10.0)
[2021-12-04] MEDS: fentaNYL 25mcg/hr PATCH.TD72 TD SCH (17:51)
[2021-12-04] MEDS: FENTANYL PATCH WASTE MC PRN (17:56)
[2021-12-04] MEDS ORDERED: MELATONIN 5 MG TABLETS PO PRN (23:41)
[2021-12-05] MEDS ORDERED: PIPERACILLIN/TAZOBACTAM 3.375 GM VIAL IVPB ONE ×3 (01:12→17:14)
[2021-12-05] MEDS ORDERED: DEXTROSE 5%-WATER - 50 ML IVPB ONE ×3 (01:13→17:14)
[2021-12-05] MEDS: PIPERACILLIN/TAZOB 3.375 GM 3.375 GM in DEXTROSE 5%-WATER - 50 ML IVPB SCH ×3 (01:24→18:07)
[2021-12-05] MEDS: TAMSULOSIN HCL 0.4 MG CAP PO SCH (08:53)
[2021-12-05] MEDS: POLYETHYLENE GLYCOL (HEALTHYLAX) 3350 17 GM PACKET PO SCH ×2 (10:12→21:45)
[2021-12-05] MEDS: ENOXAPARIN NA (PORCINE) 40 MG/0.4 ML DISP.SYRIN SQ SCH (10:14)
[2021-12-05] MEDS: ATORVASTATIN CA 40 MG TABLET (FP) PO SCH (10:17)
[2021-12-05] MEDS: ASCORBIC ACID 250 MG TABLET (FP) PO SCH (10:17)
[2021-12-05] MEDS: METOPROLOL TARTRATE 25 MG TABLET (FP) PO SCH (10:17)
[2021-12-05] MEDS: ASPIRIN COATED 81 MG TABLET.EC PO SCH (10:17)
[2021-12-05] MEDS: ZINC SULFATE 220 MG CAPSULE (FP) PO SCH (10:17)
[2021-12-05] MEDS: MULTIVITAMINS (DAILY MVI) TABLET (FP) PO SCH (10:17)
[2021-12-05] MEDS: PANTOPRAZOLE 20 MG TABLET PO SCH (10:17)
[2021-12-05] MEDS: METHIMAZOLE 10 MG TABLET PO SCH (10:18)
[2021-12-06] MEDS ORDERED: PIPERACILLIN/TAZOBACTAM 3.375 GM VIAL IVPB ONE ×3 (02:35→18:04)
[2021-12-06] MEDS ORDERED: DEXTROSE 5%-WATER - 50 ML IVPB ONE ×2 (02:36→18:04)
[2021-12-06] MEDS: PIPERACILLIN/TAZOB 3.375 GM 3.375 GM in DEXTROSE 5%-WATER - 50 ML IVPB SCH ×3 (02:43→18:06)
[2021-12-06 08:41] LABS: CALCIUM 10.1 mg/dL (8.5-10.1)
[2021-12-06 08:42] LABS: ALBUMIN 1.6 g/dl (3.4-5.0); BLOOD UREA NITROGEN 19.9 mg/dL (7-18)
[2021-12-06 08:44] LABS: CREATININE 0.7 mg/dL (0.55-1.3)
[2021-12-06] MEDS: AMINO ACIDS/PROTEIN HYDROLYS 30 ML LIQUID.PKT PO SCH ×3 (09:00→18:06)
[2021-12-06] MEDS: ATORVASTATIN CA 40 MG TABLET (FP) PO SCH (09:26)
[2021-12-06] MEDS: ENOXAPARIN NA (PORCINE) 40 MG/0.4 ML DISP.SYRIN SQ SCH (09:26)
[2021-12-06] MEDS: POLYETHYLENE GLYCOL (HEALTHYLAX) 3350 17 GM PACKET PO SCH ×2 (09:26→21:11)
[2021-12-06] MEDS: ASPIRIN COATED 81 MG TABLET.EC PO SCH (09:26)
[2021-12-06] MEDS: PANTOPRAZOLE 20 MG TABLET PO SCH (09:26)
[2021-12-06] MEDS: METOPROLOL TARTRATE 25 MG TABLET (FP) PO SCH (09:26)
[2021-12-06] MEDS: ZINC SULFATE 220 MG CAPSULE (FP) PO SCH (09:26)
[2021-12-06] MEDS: ACETAMINOPHEN 325 MG TABLET (FP) PO PRN (09:26)
[2021-12-06] MEDS: TAMSULOSIN HCL 0.4 MG CAP PO SCH (09:26)
[2021-12-06] MEDS: MULTIVITAMINS (DAILY MVI) TABLET (FP) PO SCH (09:26)
[2021-12-06] MEDS: ASCORBIC ACID 250 MG TABLET (FP) PO SCH (09:27)
[2021-12-06] MEDS: METHIMAZOLE 10 MG TABLET PO SCH (09:27)
[2021-12-06 10:26] LABS: HEMATOCRIT 25.1 % (35.4-49); HEMOGLOBIN 8.2 GM/dL (11.7-16.9); MCH 29.5 pg (25.7-33.7); MCHC 32.6 g/dl (32.0-35.9); MEAN CELL VOLUME 90.6 fl (80-96); PLATELET COUNT 235 10^3/uL (134-434); RBC 2.77 M/mm3 (4.00-5.60); RDW 18.7 % (11.9-15.9); WHITE BLOOD COUNT 9.7 K/mm3 (4.0-10.0)
[2021-12-06] MEDS: FENTANYL PATCH WASTE MC PRN (19:00)
[2021-12-07] MEDS ORDERED: DEXTROSE 5%-WATER - 50 ML IVPB ONE ×2 (01:03→17:19)
[2021-12-07] MEDS ORDERED: PIPERACILLIN/TAZOBACTAM 3.375 GM VIAL IVPB ONE ×3 (01:03→17:18)
[2021-12-07] MEDS: PIPERACILLIN/TAZOB 3.375 GM 3.375 GM in DEXTROSE 5%-WATER - 50 ML IVPB SCH ×3 (01:07→17:22)
[2021-12-07] MEDS ORDERED: SODIUM CHLORIDE 250 ML IV STA (03:38)
[2021-12-07] MEDS ORDERED: MENTHOL/PHENOL 1 EACH UD MM PRN (03:39)
[2021-12-07] MEDS: BENZOCAINE/MENTHOL 1 EACH LOZENGE MM PRN ×2 (04:06→14:04)
[2021-12-07] MEDS: METOPROLOL TARTRATE 25 MG TABLET (FP) PO SCH (09:10)
[2021-12-07] MEDS: PANTOPRAZOLE 20 MG TABLET PO SCH (09:10)
[2021-12-07] MEDS: ASPIRIN COATED 81 MG TABLET.EC PO SCH (09:10)
[2021-12-07] MEDS: ZINC SULFATE 220 MG CAPSULE (FP) PO SCH (09:11)
[2021-12-07] MEDS: MULTIVITAMINS (DAILY MVI) TABLET (FP) PO SCH (09:11)
[2021-12-07] MEDS: TAMSULOSIN HCL 0.4 MG CAP PO SCH (09:11)
[2021-12-07] MEDS: AMINO ACIDS/PROTEIN HYDROLYS 30 ML LIQUID.PKT PO SCH ×3 (09:11→17:23)
[2021-12-07] MEDS: POLYETHYLENE GLYCOL (HEALTHYLAX) 3350 17 GM PACKET PO SCH (09:11)
[2021-12-07] MEDS: ATORVASTATIN CA 40 MG TABLET (FP) PO SCH (09:12)
[2021-12-07] MEDS: ENOXAPARIN NA (PORCINE) 40 MG/0.4 ML DISP.SYRIN SQ SCH (09:12)
[2021-12-07] MEDS: ASCORBIC ACID 250 MG TABLET (FP) PO SCH (09:14)
[2021-12-07] MEDS: METHIMAZOLE 10 MG TABLET PO SCH (09:14)
[2021-12-07] MEDS: ACETAMINOPHEN 325 MG TABLET (FP) PO PRN (14:03)
[2021-12-07] MEDS: FERROUS SO4 325 MG TABLET (FP) PO SCH (17:22)
[2021-12-07] MEDS: DOCUSATE SODIUM 100 MG CAPSULE (FP) PO SCH (23:10)
[2021-12-08] MEDS ORDERED: PIPERACILLIN/TAZOBACTAM 3.375 GM VIAL IVPB ONE ×3 (01:46→17:01)
[2021-12-08] MEDS ORDERED: DEXTROSE 5%-WATER - 50 ML IVPB ONE ×2 (01:46→09:45)
[2021-12-08] MEDS: PIPERACILLIN/TAZOB 3.375 GM 3.375 GM in DEXTROSE 5%-WATER - 50 ML IVPB SCH ×3 (01:47→17:16)
[2021-12-08] MEDS: FERROUS SO4 325 MG TABLET (FP) PO SCH ×2 (08:57→12:33)
[2021-12-08] MEDS: TAMSULOSIN HCL 0.4 MG CAP PO SCH (08:57)
[2021-12-08] MEDS: METOPROLOL TARTRATE 25 MG TABLET (FP) PO SCH (09:57)
[2021-12-08] MEDS: FOLIC ACID 1 MG TABLET (FP) PO SCH (09:57)
[2021-12-08] MEDS: ASPIRIN COATED 81 MG TABLET.EC PO SCH (09:57)
[2021-12-08] MEDS: PANTOPRAZOLE 20 MG TABLET PO SCH (09:57)
[2021-12-08] MEDS: ATORVASTATIN CA 40 MG TABLET (FP) PO SCH (09:57)
[2021-12-08] MEDS: ASCORBIC ACID 250 MG TABLET (FP) PO SCH (09:58)
[2021-12-08] MEDS: METHIMAZOLE 10 MG TABLET PO SCH (09:58)
[2021-12-08] MEDS: MULTIVITAMINS (DAILY MVI) TABLET (FP) PO SCH (09:58)
[2021-12-08] MEDS: ZINC SULFATE 220 MG CAPSULE (FP) PO SCH (10:00)
[2021-12-08] MEDS: BENZOCAINE/MENTHOL 1 EACH LOZENGE MM PRN (10:00)
[2021-12-08] MEDS: AMINO ACIDS/PROTEIN HYDROLYS 30 ML LIQUID.PKT PO SCH ×3 (10:00→17:01)
[2021-12-08] MEDS: DOCUSATE SODIUM 100 MG CAPSULE (FP) PO SCH (21:49)
[2021-12-08] MEDS: ACETAMINOPHEN 325 MG TABLET (FP) PO PRN (22:27)
[2021-12-09] MEDS ORDERED: DEXTROSE 5%-WATER - 50 ML IVPB ONE ×3 (00:49→17:10)
[2021-12-09] MEDS ORDERED: PIPERACILLIN/TAZOBACTAM 3.375 GM VIAL IVPB ONE ×3 (00:49→17:10)
[2021-12-09] MEDS: PIPERACILLIN/TAZOB 3.375 GM 3.375 GM in DEXTROSE 5%-WATER - 50 ML IVPB SCH ×3 (01:09→17:19)
[2021-12-09] MEDS: METOPROLOL TARTRATE 25 MG TABLET (FP) PO SCH (09:08)
[2021-12-09] MEDS: PANTOPRAZOLE 20 MG TABLET PO SCH (09:08)
[2021-12-09] MEDS: ZINC SULFATE 220 MG CAPSULE (FP) PO SCH (09:08)
[2021-12-09] MEDS: MULTIVITAMINS (DAILY MVI) TABLET (FP) PO SCH (09:08)
[2021-12-09] MEDS: FOLIC ACID 1 MG TABLET (FP) PO SCH (09:08)
[2021-12-09] MEDS: ASPIRIN COATED 81 MG TABLET.EC PO SCH (09:08)
[2021-12-09] MEDS: ATORVASTATIN CA 40 MG TABLET (FP) PO SCH (09:08)
[2021-12-09] MEDS: TAMSULOSIN HCL 0.4 MG CAP PO SCH (09:08)
[2021-12-09] MEDS: ASCORBIC ACID 250 MG TABLET (FP) PO SCH (09:08)
[2021-12-09] MEDS: METHIMAZOLE 10 MG TABLET PO SCH (09:09)
[2021-12-09] MEDS: AMINO ACIDS/PROTEIN HYDROLYS 30 ML LIQUID.PKT PO SCH ×3 (09:09→17:20)
[2021-12-09 09:44] LABS: CALCIUM 11.5 mg/dL (8.5-10.1)
[2021-12-09 09:45] LABS: ALBUMIN 1.8 g/dl (3.4-5.0); BLOOD UREA NITROGEN 38.3 mg/dL (7-18)
[2021-12-09 09:48] LABS: CREATININE 1.3 mg/dL (0.55-1.3)
[2021-12-09 09:50] LABS: BILIRUBIN,TOTAL 2.8 mg/dL (0.2-1); TOT PROT 6.8 g/dl (6.4-8.2)
[2021-12-09 10:41] LABS: HEMATOCRIT 26.1 % (35.4-49); HEMOGLOBIN 8.7 GM/dL (11.7-16.9); MCH 32.3 pg (25.7-33.7); MCHC 33.1 g/dl (32.0-35.9); MEAN CELL VOLUME 97.5 fl (80-96); MEAN PLT VOLUME 8.5 fl (7.5-11.1); PLATELET COUNT 265 10^3/uL (134-434); RBC 2.68 M/mm3 (4.00-5.60); RDW 18.5 % (11.9-15.9); WHITE BLOOD COUNT 11.9 K/mm3 (4.0-10.0)
[2021-12-09] MEDS: ACETAMINOPHEN 325 MG TABLET (FP) PO PRN (10:49)
[2021-12-09 11:15] LABS: ANISOCYTOSIS 0; HELMET CELLS 0; HOWELL-JOLLY BODIES 0; MACROCYTOSIS 0; OVALOCYTE 0; ROULEAU 0; SICKELED CELLS 0; TARGET CELLS 0; TEAR DROP CELLS 0; TOXIC GRANULATION 0
[2021-12-09 11:16] LABS: NEUT % 8.4 % (42.8-82.8)
[2021-12-09] MEDS: DEXTROSE 5%-0.45% SALINE 1,000 ML IV SCH (15:54)
[2021-12-09] MEDS: DOCUSATE SODIUM 100 MG CAPSULE (FP) PO SCH (21:24)
[2021-12-10] MEDS ORDERED: DEXTROSE 5%-WATER - 50 ML IVPB ONE ×2 (02:51→10:00)
[2021-12-10] MEDS ORDERED: PIPERACILLIN/TAZOBACTAM 3.375 GM VIAL IVPB ONE ×2 (02:51→10:00)
[2021-12-10] MEDS: PIPERACILLIN/TAZOB 3.375 GM 3.375 GM in DEXTROSE 5%-WATER - 50 ML IVPB SCH ×2 (02:55→10:03)
[2021-12-10] MEDS: ACETAMINOPHEN 325 MG TABLET (FP) PO PRN ×2 (03:19→15:56)
[2021-12-10] MEDS ORDERED: SODIUM CHLORIDE 500 ML IV STA (05:30)
[2021-12-10] MEDS: AMINO ACIDS/PROTEIN HYDROLYS 30 ML LIQUID.PKT PO SCH ×3 (08:49→17:13)
[2021-12-10] MEDS: TAMSULOSIN HCL 0.4 MG CAP PO SCH (08:49)
[2021-12-10] MEDS: FOLIC ACID 1 MG TABLET (FP) PO SCH (10:04)
[2021-12-10] MEDS: MULTIVITAMINS (DAILY MVI) TABLET (FP) PO SCH (10:04)
[2021-12-10] MEDS: ATORVASTATIN CA 40 MG TABLET (FP) PO SCH (10:04)
[2021-12-10] MEDS: PANTOPRAZOLE 20 MG TABLET PO SCH (10:04)
[2021-12-10] MEDS: ZINC SULFATE 220 MG CAPSULE (FP) PO SCH (10:04)
[2021-12-10] MEDS: ASCORBIC ACID 250 MG TABLET (FP) PO SCH (10:05)
[2021-12-10] MEDS: ASPIRIN COATED 81 MG TABLET.EC PO SCH (10:05)
[2021-12-10] MEDS: METHIMAZOLE 10 MG TABLET PO SCH ×2 (10:05→21:02)
[2021-12-10] MEDS: METOPROLOL TARTRATE 25 MG TABLET (FP) PO SCH ×2 (10:05→21:02)
[2021-12-10 12:00] LABS: ALBUMIN 1.6 g/dl (3.4-5.0); BLOOD UREA NITROGEN 41.9 mg/dL (7-18); CALCIUM 11.1 mg/dL (8.5-10.1)
[2021-12-10 12:03] LABS: CREATININE 1.3 mg/dL (0.55-1.3)
[2021-12-10 12:05] LABS: BILIRUBIN,TOTAL 2.4 mg/dL (0.2-1); TOT PROT 6.4 g/dl (6.4-8.2)
[2021-12-10 13:29] LABS: BASO % 0.8 % (0-2.0); EOS % 0.8 % (0-4.5); HEMATOCRIT 23.1 % (35.4-49); HEMOGLOBIN 7.4 GM/dL (11.7-16.9); LYMPH % 10.4 % (8-40); MEAN CELL VOLUME 93.8 fl (80-96); MEAN PLT VOLUME 8.5 fl (7.5-11.1); MONO % 11.2 % (3.8-10.2); NEUT % 76.8 % (42.8-82.8); PLATELET COUNT 290 10^3/uL (134-434); RBC 2.47 M/mm3 (4.00-5.60); RDW 18.7 % (11.9-15.9); WHITE BLOOD COUNT 14.6 K/mm3 (4.0-10.0)
[2021-12-10] MEDS: DEXTROSE 5%-0.45% SALINE 1,000 ML IV SCH (15:55)
[2021-12-10] MEDS ORDERED: FENTANYL PATCH WASTE MC PRN (18:04)
[2021-12-10] MEDS ORDERED: fentaNYL 25mcg/hr PATCH.TD72 TD SCH (18:15)
[2021-12-10] MEDS: DOCUSATE SODIUM 100 MG CAPSULE (FP) PO SCH (21:02)
[2021-12-11] MEDS: ZINC SULFATE 220 MG CAPSULE (FP) PO SCH (09:08)
[2021-12-11] MEDS: FOLIC ACID 1 MG TABLET (FP) PO SCH (09:08)
[2021-12-11] MEDS: METOPROLOL TARTRATE 25 MG TABLET (FP) PO SCH ×2 (09:08→21:10)
[2021-12-11] MEDS: ASPIRIN COATED 81 MG TABLET.EC PO SCH (09:08)
[2021-12-11] MEDS: AMINO ACIDS/PROTEIN HYDROLYS 30 ML LIQUID.PKT PO SCH ×3 (09:08→17:30)
[2021-12-11] MEDS: ASCORBIC ACID 250 MG TABLET (FP) PO SCH (09:08)
[2021-12-11] MEDS: TAMSULOSIN HCL 0.4 MG CAP PO SCH (09:08)
[2021-12-11] MEDS: PANTOPRAZOLE 20 MG TABLET PO SCH (09:08)
[2021-12-11] MEDS: MULTIVITAMINS (DAILY MVI) TABLET (FP) PO SCH (09:08)
[2021-12-11] MEDS: ATORVASTATIN CA 40 MG TABLET (FP) PO SCH (09:09)
[2021-12-11] MEDS: METHIMAZOLE 10 MG TABLET PO SCH ×2 (09:09→21:10)
[2021-12-11 09:11] LABS: ALBUMIN 1.6 g/dl (3.4-5.0); BLOOD UREA NITROGEN 43.8 mg/dL (7-18)
[2021-12-11 09:14] LABS: CREATININE 1.1 mg/dL (0.55-1.3)
[2021-12-11 09:16] LABS: BILIRUBIN,TOTAL 1.5 mg/dL (0.2-1); TOT PROT 5.8 g/dl (6.4-8.2)
[2021-12-11 09:59] LABS: HEMATOCRIT 18.3 % (35.4-49); MCH 30.8 pg (25.7-33.7); MCHC 33.3 g/dl (32.0-35.9); MEAN CELL VOLUME 92.5 fl (80-96); MEAN PLT VOLUME 8.5 fl (7.5-11.1); PLATELET COUNT 264 10^3/uL (134-434); RBC 1.97 M/mm3 (4.00-5.60); RDW 18.4 % (11.9-15.9)
[2021-12-11 10:10] LABS: HEMOGLOBIN 6.1 GM/dL (11.7-16.9)
[2021-12-11 10:23] LABS: ANISOCYTOSIS 1+; MACROCYTOSIS 1+
[2021-12-11] MEDS: ACETAMINOPHEN 325 MG TABLET (FP) PO PRN (18:49)
[2021-12-11] MEDS: DOCUSATE SODIUM 100 MG CAPSULE (FP) PO SCH (21:10)
[2021-12-11] MEDS: PANTOPRAZOLE 40 MG TABLET PO SCH (21:13)
[2021-12-12 09:05] LABS: ALBUMIN 1.5 g/dl (3.4-5.0); BLOOD UREA NITROGEN 42.1 mg/dL (7-18); CALCIUM 11.1 mg/dL (8.5-10.1)
[2021-12-12 09:08] LABS: CREATININE 0.9 mg/dL (0.55-1.3)
[2021-12-12 09:10] LABS: BILIRUBIN,TOTAL 1.6 mg/dL (0.2-1); TOT PROT 5.9 g/dl (6.4-8.2)
[2021-12-12] MEDS: MULTIVITAMINS (DAILY MVI) TABLET (FP) PO SCH (09:36)
[2021-12-12] MEDS: TAMSULOSIN HCL 0.4 MG CAP PO SCH (09:36)
[2021-12-12] MEDS: PANTOPRAZOLE 40 MG TABLET PO SCH ×2 (09:36→21:04)
[2021-12-12] MEDS: METOPROLOL TARTRATE 25 MG TABLET (FP) PO SCH ×2 (09:36→21:04)
[2021-12-12] MEDS: ZINC SULFATE 220 MG CAPSULE (FP) PO SCH (09:36)
[2021-12-12] MEDS: ASPIRIN COATED 81 MG TABLET.EC PO SCH (09:36)
[2021-12-12] MEDS: ATORVASTATIN CA 40 MG TABLET (FP) PO SCH (09:36)
[2021-12-12] MEDS: FOLIC ACID 1 MG TABLET (FP) PO SCH (09:36)
[2021-12-12] MEDS: ASCORBIC ACID 250 MG TABLET (FP) PO SCH (09:36)
[2021-12-12] MEDS: AMINO ACIDS/PROTEIN HYDROLYS 30 ML LIQUID.PKT PO SCH ×3 (09:37→17:10)
[2021-12-12] MEDS: METHIMAZOLE 10 MG TABLET PO SCH ×2 (09:37→21:06)
[2021-12-12 09:40] LABS: BASO % 0.5 % (0-2.0); EOS % 3.1 % (0-4.5); HEMOGLOBIN 7.2 GM/dL (11.7-16.9); LYMPH % 8.4 % (8-40); MCH 30.5 pg (25.7-33.7); MCHC 32.7 g/dl (32.0-35.9); MEAN CELL VOLUME 93.3 fl (80-96); MEAN PLT VOLUME 8.4 fl (7.5-11.1); MONO % 9.2 % (3.8-10.2); NEUT % 78.8 % (42.8-82.8); PLATELET COUNT 288 10^3/uL (134-434); RBC 2.36 M/mm3 (4.00-5.60); RDW 17.5 % (11.9-15.9); WHITE BLOOD COUNT 16.1 K/mm3 (4.0-10.0)
[2021-12-12] MEDS ORDERED: DEXTROSE 5%-0.45% SALINE 1,000 ML IV SCH (14:30)
[2021-12-12] MEDS ORDERED: FUROSEMIDE 40 MG/4 ML INJECTABLE VIAL IVPUSH ONE (17:30)
[2021-12-12] MEDS: COLLAGENASE CLOSTRIDIUM HIST. 30 GRAMS TUBE TP SCH (17:44)
[2021-12-12] MEDS: DOCUSATE SODIUM 100 MG CAPSULE (FP) PO SCH (21:06)
[2021-12-13] MEDS: AMINO ACIDS/PROTEIN HYDROLYS 30 ML LIQUID.PKT PO SCH ×2 (08:42→12:20)
[2021-12-13] MEDS: TAMSULOSIN HCL 0.4 MG CAP PO SCH (08:42)
[2021-12-13] MEDS: METHIMAZOLE 10 MG TABLET PO SCH (10:03)
[2021-12-13] MEDS: ACETAMINOPHEN 325 MG TABLET (FP) PO PRN (10:04)
[2021-12-13] MEDS: ASPIRIN COATED 81 MG TABLET.EC PO SCH (10:04)
[2021-12-13] MEDS: FOLIC ACID 1 MG TABLET (FP) PO SCH (10:04)
[2021-12-13] MEDS: ZINC SULFATE 220 MG CAPSULE (FP) PO SCH (10:06)
[2021-12-13] MEDS: COLLAGENASE CLOSTRIDIUM HIST. 30 GRAMS TUBE TP SCH (10:06)
[2021-12-13] MEDS: ATORVASTATIN CA 40 MG TABLET (FP) PO SCH (10:06)
[2021-12-13] MEDS: PANTOPRAZOLE 40 MG TABLET PO SCH (10:06)
[2021-12-13] MEDS: METOPROLOL TARTRATE 25 MG TABLET (FP) PO SCH (10:06)
[2021-12-13] MEDS: ASCORBIC ACID 250 MG TABLET (FP) PO SCH (10:07)
[2021-12-13] MEDS: MULTIVITAMINS (DAILY MVI) TABLET (FP) PO SCH (10:07)
[2021-12-13 12:49] LABS: BASO % 0.5 % (0-2.0); EOS % 2.4 % (0-4.5); HEMATOCRIT 24.3 % (35.4-49); HEMOGLOBIN 8.7 GM/dL (11.7-16.9); LYMPH % 9.6 % (8-40); MCH 35.2 pg (25.7-33.7); MCHC 35.7 g/dl (32.0-35.9); MEAN CELL VOLUME 98.4 fl (80-96); MEAN PLT VOLUME 8.4 fl (7.5-11.1); MONO % 10.2 % (3.8-10.2); NEUT % 77.3 % (42.8-82.8); PLATELET COUNT 299 10^3/uL (134-434); RBC 2.47 M/mm3 (4.00-5.60); RDW 18.3 % (11.9-15.9); WHITE BLOOD COUNT 16.6 K/mm3 (4.0-10.0)
[2021-12-13 15:35] VITALS: BP 95/56; PULSE 99; TEMP 98.1
== END 2021-12-13 17:35 | DRG 477 ==
LOC: JER 13:00 → JERBED 15:22 → J6S 19:59
PROVIDERS: ADMIT Family Medicine; ATTEND Family Medicine
PROC: 30233N1 Transfusion of Nonautologous Red Blood Cells into Peripheral Vein, Percutaneous Approach (ICD-10-PCS; 2021-11-29)
PROC: 0QB70ZX Excision of Left Upper Femur, Open Approach, Diagnostic (ICD-10-PCS; 2021-11-30)
PROC: 0QS706Z Reposition Left Upper Femur with Intramedullary Internal Fixation Device, Open Approach (ICD-10-PCS; principal; 2021-11-30 10:00)
DX: C79.51 Secondary malignant neoplasm of bone (principal); S72.22XA Displaced subtrochanteric fracture of left femur, initial encounter for closed fracture; E43 Unspecified severe protein-calorie malnutrition; N39.0 Urinary tract infection, site not specified; E87.1 Hypo-osmolality and hyponatremia; Z68.1 Body mass index [BMI] 19.9 or less, adult; C78.00 Secondary malignant neoplasm of unspecified lung; I31.3 Pericardial effusion (noninflammatory); R64 Cachexia; C67.9 Malignant neoplasm of bladder, unspecified; D63.0 Anemia in neoplastic disease; R33.9 Retention of urine, unspecified; E78.5 Hyperlipidemia, unspecified; E05.90 Thyrotoxicosis, unspecified without thyrotoxic crisis or storm; X58.XXXA Exposure to other specified factors, initial encounter; Y93.9 Activity, unspecified; Y92.89 Other specified places as the place of occurrence of the external cause; Y99.9 Unspecified external cause status
CPT/HCPCS: 36415; 36430; 71045-TC-FY; 76000-TC-FY; 80048; 80053; 81003; 82607; 82728; 82746; 83540; 83550; 83605; 83735; 84439; 84443; 84481; 85025; 85027; 85610; 85730; 86850; 86900; 86901; 86922; 87040; 87086; 88305-TC; 88311-TC; 88341-TC; 93005; 93010; 93306-TC; 94010; 94760; 97116-GP; 97162-GP; 99285-25; C9803-CS; J1644; P9058; U0003; U0005

== ENCOUNTER 2021-12-25 11:47 | Inpatient (IN) | payer OTHER ==
[2021-12-25] MEDS ORDERED: ACETAMINOPHEN 1000 MG/100 ML BAG IVPB ONE ×2 (12:27→21:24)
[2021-12-25] MEDS ORDERED: SODIUM CHLORIDE 0.9% 500 ML INFUS.BAG IV ONE ×3 (14:12→19:15)
[2021-12-25] MEDS ORDERED: VANCOMYCIN 1 GM in D5W (PRE-DOCKED) 1,000 MG/250 ML IVPB ONE (14:25)
[2021-12-25] MEDS ORDERED: CEFEPIME HCL/D5W 1 GM/50 ML BAG IVPB ONE (14:26)
[2021-12-25] MEDS ORDERED: ACETAMINOPHEN INJECTION 100 ML IVPB ONE ×2 (14:27→21:30)
[2021-12-25 15:32] LABS: VENOUS BASE EXCESS 0.7 mmol/L (-2-2); VENOUS PCO2 46.4 mmHg (38-52); VENOUS PH 7.37 (7.310-7.410)
[2021-12-25 15:39] LABS: INR 1.55 (0.83-1.09); PROTHROMBIN TIME (PATIENT) 17.9 SEC (9.7-13.0)
[2021-12-25 15:42] LABS: ACTIVATED PTT 29.9 SECONDS (25.2-36.5)
[2021-12-25 15:49] LABS: LACTIC ACID 2.5 mmol/L (0.4-2.0)
[2021-12-25 15:55] LABS: HEMATOCRIT 22.9 % (35.4-49); HEMOGLOBIN 7.4 GM/dL (11.7-16.9); MCH 31.7 pg (25.7-33.7); MCHC 32.6 g/dl (32.0-35.9); MEAN CELL VOLUME 97.4 fl (80-96); MEAN PLT VOLUME 8.3 fl (7.5-11.1); PLATELET COUNT 345 10^3/uL (134-434); RBC 2.35 M/mm3 (4.00-5.60); RDW 19.6 % (11.9-15.9); WHITE BLOOD COUNT 27.8 K/mm3 (4.0-10.0)
[2021-12-25 15:58] LABS: ALBUMIN 1.5 g/dl (3.4-5.0); CALCIUM 12.5 mg/dL (8.5-10.1)
[2021-12-25 16:01] LABS: CREATININE 2.9 mg/dL (0.55-1.3)
[2021-12-25 16:03] LABS: BILIRUBIN,TOTAL 5.7 mg/dL (0.2-1); TOT PROT 6.8 g/dl (6.4-8.2)
[2021-12-25] MEDS ORDERED: VANCOMYCIN 1 GRAM (PRE-DOCKED) 1,000 MG/250 ML BAG IVPB ONE ×2 (16:28→16:45)
[2021-12-25] MEDS ORDERED: CEFEPIME 1 GM/100 ML BAG IVPB ONE (16:29)
[2021-12-25 16:30] LABS: URINE APPEARANCE TURBID; URINE BILIRUBIN 2+ (NEGATIVE); URINE COLOR ORANGE; URINE GLUCOSE (UA) NEGATIVE (NEGATIVE); URINE KETONE NEGATIVE (NEGATIVE); URINE LEUK ESTERASE 3+ (NEGATIVE); URINE NITRITE POSITIVE (NEGATIVE); URINE PROTEIN 3+ (NEGATIVE)
[2021-12-25 16:56] LABS: ANISOCYTOSIS 2+; MACROCYTOSIS 1+
[2021-12-25 18:40] LABS: PH,URINE 5.5 (5.0-8.0); URINE APPEARANCE TURBID; URINE BILIRUBIN 2+ (NEGATIVE); URINE COLOR DK YELLOW; URINE GLUCOSE (UA) NEGATIVE (NEGATIVE); URINE KETONE NEGATIVE (NEGATIVE); URINE LEUK ESTERASE 3+ (NEGATIVE); URINE NITRITE POSITIVE (NEGATIVE); URINE PROTEIN 3+ (NEGATIVE)
[2021-12-25 19:22] LABS: EPI CELLS 164 /uL (0-25.1); HYALINE CASTS 268 /uL (0-3.1); URINE BACTERIA 2801 /uL (0-1359); URINE RBC 2345 /uL (0-23.9); URINE WBC 24990 /uL (0-25.8)
[2021-12-25 22:20] LABS: BLOOD UREA NITROGEN 80.3 mg/dL (7-18); MAGNESIUM 2.2 mg/dL (1.8-2.4)
[2021-12-25 22:23] LABS: CREATININE 2.6 mg/dL (0.55-1.3); PHOSPHOROUS 4.4 mg/dL (2.5-4.9)
[2021-12-25 22:50] LABS: BASO % 0.4 % (0-2.0); EOS % 0.4 % (0-4.5); HEMATOCRIT 19.9 % (35.4-49); MCH 29.5 pg (25.7-33.7); MCHC 31.7 g/dl (32.0-35.9); MEAN CELL VOLUME 92.9 fl (80-96); MEAN PLT VOLUME 8.4 fl (7.5-11.1); MONO % 4.1 % (3.8-10.2); NEUT % 91.1 % (42.8-82.8); PLATELET COUNT 331 10^3/uL (134-434); RBC 2.15 M/mm3 (4.00-5.60); RDW 19.6 % (11.9-15.9); WHITE BLOOD COUNT 24.8 K/mm3 (4.0-10.0)
[2021-12-25 22:53] LABS: HEMOGLOBIN 6.3 GM/dL (11.7-16.9)
[2021-12-25 23:26] LABS: ANISOCYTOSIS 2+; MACROCYTOSIS 0
[2021-12-26 08:19] LABS: HEMATOCRIT 9.1 % (35.4-49); MEAN CELL VOLUME 103.7 fl (80-96); MEAN PLT VOLUME 7.9 fl (7.5-11.1); PLATELET COUNT 335 10^3/uL (134-434); RBC 0.88 M/mm3 (4.00-5.60); WHITE BLOOD COUNT 21.3 K/mm3 (4.0-10.0)
[2021-12-26 08:25] LABS: INR 1.7 (0.83-1.09); MCH 71.6 pg (25.7-33.7); MCHC 69.1 g/dl (32.0-35.9); PROTHROMBIN TIME (PATIENT) 19.7 SEC (9.7-13.0)
[2021-12-26 08:27] LABS: HEMOGLOBIN 6.3 GM/dL (11.7-16.9)
[2021-12-26 08:44] LABS: ALBUMIN 1.3 g/dl (3.4-5.0); BLOOD UREA NITROGEN 82.1 mg/dL (7-18); CALCIUM 11.3 mg/dL (8.5-10.1)
[2021-12-26 08:47] LABS: CREATININE 2.4 mg/dL (0.55-1.3)
[2021-12-26 08:49] LABS: BILIRUBIN,TOTAL 5.6 mg/dL (0.2-1); TOT PROT 5.9 g/dl (6.4-8.2)
[2021-12-26] MEDS ORDERED: DEXTROSE 50%-WATER - 25 GM/50 ML VIAL IVPUSH ONE (09:55)
[2021-12-26] MEDS ORDERED: DEXTROSE 5%-0.45% SALINE 1,000 ML IV SCH ×4 (10:00→18:15)
[2021-12-26] MEDS ORDERED: ACETAMINOPHEN 1000 MG/100 ML BAG IVPB ONE (10:05)
[2021-12-26] MEDS ORDERED: ACETAMINOPHEN INJECTION 100 ML IVPB ONE (10:09)
[2021-12-26] MEDS ORDERED: VANCOMYCIN 1 GRAM (PRE-DOCKED) 1,000 MG/250 ML BAG IVPB ONE (10:30)
[2021-12-26] MEDS ORDERED: MEROPENEM 1 GM in DEXTROSE 5%-WATER 100 ML IVPB ONE (10:45)
[2021-12-26 11:44] LABS: ANISOCYTOSIS 2+; MACROCYTOSIS 2+
[2021-12-26] MEDS ORDERED: DEXTROSE 5%-WATER 100 ML IVPB ONE (11:47)
[2021-12-26] MEDS ORDERED: MEROPENEM 1 GM VIAL (RESTRICTED TO ID) IVPB ONE (11:47)
[2021-12-26] MEDS ORDERED: SODIUM CHLORIDE 1,000 ML IV SCH (12:30)
[2021-12-26] MEDS ORDERED: METOPROLOL TARTRATE 5 MG/5 ML VIAL IVPUSH PRN ×2 (14:21→17:16)
[2021-12-26] MEDS ORDERED: VANCOMYCIN 1 GM in D5W (PRE-DOCKED) 1,000 MG/250 ML IVPB SCH ×2 (14:30→16:00)
[2021-12-26] MEDS ORDERED: DIGOXIN 0.5 MG/2 ML AMPUL ONE (15:20)
[2021-12-26] MEDS ORDERED: DIGOXIN 0.5 MG/2 ML AMPUL IVPUSH ONE ×3 (15:21→18:28)
[2021-12-26] MEDS ORDERED: VANCOMYCIN 1 GRAM (PRE-DOCKED) 1,000 MG/250 ML BAG IVPB SCH (16:00)
[2021-12-26] MEDS ORDERED: CEFEPIME 0.5 GM in DEXTROSE 5%-WATER - 100 ML IVPB SCH (16:00)
[2021-12-26] MEDS ORDERED: ACETAMINOPHEN 1000 MG/100 ML BAG IVPB PRN (16:00)
[2021-12-26] MEDS ORDERED: METOPROLOL TARTRATE 5 MG/5 ML VIAL IVPUSH ONE (16:07)
[2021-12-26] MEDS ORDERED: HALOPERIDOL LACTATE 5 MG/ML IM ONE (17:31)
[2021-12-26 17:39] LABS: BASO % 0.3 % (0-2.0); EOS % 0.9 % (0-4.5); HEMATOCRIT 9.6 % (35.4-49); HEMOGLOBIN 7.6 GM/dL (11.7-16.9); LYMPH % 3.6 % (8-40); MEAN CELL VOLUME 107.8 fl (80-96); MEAN PLT VOLUME 8.2 fl (7.5-11.1); MONO % 2.5 % (3.8-10.2); NEUT % 92.7 % (42.8-82.8); RBC 0.89 M/mm3 (4.00-5.60); RDW 18.3 % (11.9-15.9); WHITE BLOOD COUNT 17.5 K/mm3 (4.0-10.0)
[2021-12-26 17:44] LABS: MCH 85.8 pg (25.7-33.7); MCHC 79.6 g/dl (32.0-35.9)
[2021-12-26 17:57] LABS: CALCIUM 10.2 mg/dL (8.5-10.1)
[2021-12-26 17:58] LABS: ALBUMIN 1.1 g/dl (3.4-5.0); BLOOD UREA NITROGEN 79.8 mg/dL (7-18); MAGNESIUM 2.2 mg/dL (1.8-2.4)
[2021-12-26] MEDS ORDERED: MEROPENEM 500 MG in DEXTROSE 5%-WATER 100 ML IVPB SCH (18:00)
[2021-12-26 18:01] LABS: CREATININE 2.3 mg/dL (0.55-1.3); PHOSPHOROUS 3.3 mg/dL (2.5-4.9)
[2021-12-26 18:02] LABS: BILIRUBIN,TOTAL 4.3 mg/dL (0.2-1); TOT PROT 5.1 g/dl (6.4-8.2)
[2021-12-26 18:08] LABS: LACTIC ACID 4.1 mmol/L (0.4-2.0)
[2021-12-26 18:09] LABS: ANISOCYTOSIS 2+; MACROCYTOSIS 0; TARGET CELLS 1+; TEAR DROP CELLS 1+
[2021-12-26 18:10] LABS: PLATELET ESTIMATE ADEQUATE
[2021-12-26 18:11] LABS: PLATELET COUNT 286 10^3/uL (134-434)
[2021-12-26] MEDS ORDERED: FENTANYL PATCH WASTE MC PRN (19:22)
[2021-12-26] MEDS ORDERED: DOCUSATE SODIUM 100 MG CAPSULE (FP) PO PRN (19:22)
[2021-12-26] MEDS ORDERED: fentaNYL 25mcg/hr PATCH.TD72 TD SCH (19:30)
[2021-12-26] MEDS ORDERED: LORazepam 2 MG/ML SDV VIAL IVPUSH PRN (19:33)
[2021-12-26] MEDS: MORPHINE SULFATE/0.9% NACL/PF 100 MG/100 ML BAG IVPB SCH (19:59)
[2021-12-26 20:02] LABS: RETICULOCYTES 1.85 % (0.5-1.5)
[2021-12-26 20:03] LABS: BILIRUBIN,DIRECT 3.7 mg/dL (0.0-0.2)
[2021-12-27 06:44] VITALS: BP 97/55
[2021-12-27] MEDS ORDERED: SODIUM CHLORIDE 0.45% 1,000 ML IV SCH (08:30)
[2021-12-27] MEDS ORDERED: PANTOPRAZOLE SODIUM 40 MG VIAL IVPUSH SCH (10:00)
[2021-12-27] MEDS: ONDANSETRON 4 MG/2 ML VIAL IVPUSH SCH ×4 (10:00→22:00)
[2021-12-27 13:12] VITALS: BMI 16.7
[2021-12-27] MEDS ORDERED: ACETAMINOPHEN 1000 MG/100 ML BAG IVPB ONE (17:46)
[2021-12-27] MEDS: MORPHINE SULFATE/0.9% NACL/PF 100 MG/100 ML BAG IVPB SCH (19:54)
[2021-12-27] MEDS ORDERED: ACETAMINOPHEN 1000 MG/100 ML BAG IVPB PRN (23:16)
[2021-12-28] MEDS ORDERED: FUROSEMIDE 40 MG/4 ML INJECTABLE VIAL IVPUSH ONE (05:54)
[2021-12-28 10:51] VITALS: TEMP 97.6
[2021-12-28 14:17] VITALS: PULSE 143
[2021-12-28] MEDS ORDERED: SCOPOLAMINE HYDROBROMIDE 1 PATCH PATCH.TD72 TD SCH (16:45)
== END 2021-12-28 22:22 | disposition expired | DRG 871 ==
LOC: JER 11:47 → JERBED 21:25 → J4W 12-26 11:34 → JICU 12-26 15:46
PROVIDERS: ADMIT Hospitalist; ATTEND Family Medicine
PROC: 30233N1 Transfusion of Nonautologous Red Blood Cells into Peripheral Vein, Percutaneous Approach (ICD-10-PCS; principal; 2021-12-26)
DX: A41.89 Other specified sepsis (principal); R65.21 Severe sepsis with septic shock; G93.41 Metabolic encephalopathy; E43 Unspecified severe protein-calorie malnutrition; E87.2 Acidosis; R64 Cachexia; E87.0 Hyperosmolality and hypernatremia; N17.9 Acute kidney failure, unspecified; N39.0 Urinary tract infection, site not specified; C78.00 Secondary malignant neoplasm of unspecified lung; C79.51 Secondary malignant neoplasm of bone; N13.8 Other obstructive and reflux uropathy; Z68.1 Body mass index [BMI] 19.9 or less, adult; L89.150 Pressure ulcer of sacral region, unstageable; R41.82 Altered mental status, unspecified; K21.9 Gastro-esophageal reflux disease without esophagitis; E05.90 Thyrotoxicosis, unspecified without thyrotoxic crisis or storm; R33.9 Retention of urine, unspecified; I48.91 Unspecified atrial fibrillation; I25.10 Atherosclerotic heart disease of native coronary artery without angina pectoris; C67.8 Malignant neoplasm of overlapping sites of bladder; C61 Malignant neoplasm of prostate; F32.9 Major depressive disorder, single episode, unspecified; K59.00 Constipation, unspecified; E87.6 Hypokalemia; D72.829 Elevated white blood cell count, unspecified; J32.8 Other chronic sinusitis; I95.9 Hypotension, unspecified; R00.0 Tachycardia, unspecified; K57.90 Diverticulosis of intestine, part unspecified, without perforation or abscess without bleeding; E83.52 Hypercalcemia; E86.1 Hypovolemia; D63.8 Anemia in other chronic diseases classified elsewhere; Z66 Do not resuscitate; Z96.641 Presence of right artificial hip joint
CPT/HCPCS: 0241U-QW; 36415; 70450-TC; 71045-TC-FY; 71250-TC; 80048; 80053; 81003; 82248; 82553; 82570; 82803; 82962; 83010; 83605; 83735; 84100; 84156; 84300; 84443; 84484; 85025; 85045; 85610; 85730; 86850; 86900; 86901; 86922; 87040; 87086; 87186; 93005; 93010; 99291; P9058